=== PATIENT | male | born 1980 | race Caucasian/White ===

== ENCOUNTER 2024-02-24 11:55 | Inpatient (IN) | payer BC ==
--- NOTE | 2024-02-24 12:11 | ED ---
Recheck HPI - General Source: patient, RN notes reviewed Mode of arrival: ambulatory Limitations: no limitations <Phyllis Yao - Last Filed: 02/24/24 12:11> - General Source: patient, RN notes reviewed, old records reviewed Mode of arrival: ambulatory Limitations: no limitations <Jarred Moon - Last Filed: 02/24/24 14:26> - General Chief Complaint: Recheck/Abnormal Lab/Rx Stated Complaint: Low hemoglobin-sent by PCP Time Seen by Provider: 02/24/24 12:10 - History of Present Illness Initial Comments: Quick [id number]old male with no significant past medical history presents emergency department chief complaint of hemoglobin level 4.5. Patient received blood work complaining of primary care provider to establish care and was instructed to report to the emergency department for further evaluation. Patient states that he has been experiencing blood in the stool for the past few months addition to nausea, vomiting, and unintended weight loss. (Phyllis Yao) Patient is a pleasant 43-year-old male present to the emergency department with concerns for low blood level. Patient states he has had some intermittent blood in his stools over the past couple of months. Patient has had his some lightheadedness. Patient has been fatigued. Exertional dyspnea. No abdominal pain. Rare vomiting without blood. No melena. Patient does have a history of alcohol however has decreased significantly over this past month. (Jarred Moon) - Related Data Allergies Allergy/AdvReac Type Severity Reaction Status Date / Time No Known Allergies Allergy Verified 02/24/24 12:06 Review of Systems ROS Other: All systems not noted in ROS Statement are negative. <Phyllis Yao - Last Filed: 02/24/24 12:11> ROS Other: All systems not noted in ROS Statement are negative. Constitutional: Denies: fever Eyes: Denies: eye pain ENT: Denies: ear pain Respiratory: Denies: cough Cardiovascular: Reports: dyspnea on exertion. Denies: chest pain Endocrine: Reports: fatigue Gastrointestinal: Reports: as per HPI, hematochezia (Occasional). Denies: abdominal pain, melena Musculoskeletal: Denies: back pain <Jarred Moon - Last Filed: 02/24/24 14:26> ROS Statement: Those systems with pertinent positive or pertinent negative responses have been documented in the HPI. Past Medical History Past Medical History: No Reported History History of Any Multi-Drug Resistant Organisms: None Reported Past Surgical History: No Surgical Hx Reported Past Psychological History: No Psychological Hx Reported Smoking Status: Never smoker Past Alcohol Use History: Daily Past Drug Use History: Marijuana <Phyllis Yao - Last Filed: 02/24/24 12:11> General Exam Limitations: no limitations <Phyllis Yao - Last Filed: 02/24/24 12:11> Limitations: no limitations General appearance: alert, in no apparent distress Head exam: Present: normocephalic Eye exam: Present: normal appearance Neck exam: Present: normal inspection Cardiovascular Exam: Present: bradycardia GI/Abdominal exam: Present: soft. Absent: tenderness Rectal exam: Present: normal inspection. Absent: bloody stool Extremities exam: Present: normal inspection Neurological exam: Present: alert Psychiatric exam: Present: normal affect, normal mood Skin exam: Present: normal color <Jarred Moon - Last Filed: 02/24/24 14:26> - General Exam Comments Initial Comments: Visual Physical Exam Vital signs reviewed General: Well-appearing, nontoxic, no acute distress. Head: Normocephalic, atraumatic Eyes: PERRLA, EOMI ENT: Airway patent Chest: Nonlabored breathing Skin: No visual rash, normal skin tone Neuro: Alert and oriented 3 Musculoskeletal: No gross abnormalities (Phyllis Yao) Course Vital Signs 02/24/24 02/24/24 11:58 14:04 Temperature 98.1 F Pulse Rate 122 H 95 Respiratory 18 18 Rate Blood Pressure 111/54 123/53 O2 Sat by Pulse 100 100 Oximetry Medical Decision Making <Phyllis Yao - Last Filed: 02/24/24 12:11> - Lab Data Result diagrams: 02/24/24 13:41 <Jarred Moon - Last Filed: 02/24/24 14:26> - Medical Decision Making I completed the quick note portion of this chart signed Phyllis Yao PA-C (Phyllis Yao) EKG interpreted by myself shows sinus tachycardia 101. Normal axis. Normal QRS. Borderline ST depression inferior and lateral. Was pt. sent in by a medical professional or institution (, [facility], [facility], urgent care, hospital, or penitentiary...) When possible be specific @ -Patient was sent in by the office Did you speak to anyone other than the patient for history (EMS, parent, family, police, friend...)? What history was obtained from this source @ -Family is present and helps provide history including alcohol use Did you review nursing and triage notes (agree or disagree)? Why? @ -I reviewed and agree with nursing and triage notes Were old charts reviewed (outside hosp., previous admission, EMS record, old EKG, old radiological studies, urgent care reports/EKG's, penitentiary records)? Report findings @ -Labs reviewed from yesterday with anemia Differential Diagnosis (chest pain, altered mental status, abdominal pain women, abdominal pain men, vaginal bleeding, weakness, fever, dyspnea, syncope, headache, dizziness, GI bleed, back pain, seizure, CVA, palpatations, mental health, musculoskeletal)? @ -Differential Weakness: Hypoglycemia, shock, sepsis, hyponatremia, anemia, infection, IA, ETOH, adverse medicine reaction, overdose, stroke, this is not meant to be an all-inclusive list. EKG interpreted by me (3pts min.). @ -As above X-rays interpreted by me (1pt min.). @ -None done CT interpreted by me (1pt min.). @ -None done U/S interpreted by me (1pt. min.). @ -None done What testing was considered but not performed or refused? (CT, X-rays, U/S, labs)? Why? @ -None What meds were considered but not given or refused? Why? @ -None Did you discuss the management of the patient with other professionals (professionals i.e. , PA, [facility], lab, RT, psych nurse, social psychologist, vice president of nursing, teacher, coastal/harbor defense officer, family caseworker)? Give summary @ -Sound physician Dr. Villatoro who will admit covering Dr. Alanis he Was smoking cessation discussed for >3mins.? @ -No Was critical care preformed (if so, how long)? @ -33 minutes critical care Were there social determinants of health that impacted care today? How? (Homelessness, low income, unemployed, alcoholism, drug addiction, transportation, low edu. Level, literacy, decrease access to med. care, [facility], rehab)? @ -No Was there de-escalation of care discussed even if they declined (Discuss DNR or withdrawal of care, Hospice)? DNR status @ -No What co-morbidities impacted this encounter? (DM, HTN, Smoking, COPD, CAD, Cancer, CVA, ARF, Chemo, Hep., AIDS, mental health diagnosis, sleep apnea, morbid obesity)? @ -None Was patient admitted / discharged? Hospital course, mention meds given and route, prescriptions, significant lab abnormalities, going to OR and other pertinent info. @ -Patient presents with occasional blood in stools and anemia. Patient has fatigue tachycardia and exertional dyspnea. Transfusion ordered. Protonix ordered. Patient will be admitted with GI consult. Undiagnosed new problem with uncertain prognosis? @ -No Drug Therapy requiring intensive monitoring for toxicity (Heparin, Nitro, Insulin, Cardizem)? @ -Blood transfusion x 2 Were any procedures done? @ -No Diagnosis/symptom? @ -Lower GI hemorrhage Acute, or Chronic, or Acute on Chronic? @ -Acute Uncomplicated (without systemic symptoms) or Complicated (systemic symptoms)? @ -Complicated with anemia Side effects of treatment? @ -No Exacerbation, Progression, or Severe Exacerbation? @ -No Poses a threat to life or bodily function? How? (Chest pain, USA, IA, pneumonia, PE, COPD, DKA, ARF, appy, cholecystitis, CVA, Diverticulitis, Homicidal, Suicidal, threat to staff... and all critical care pts) @ -Threat of hypoperfusion to all organs. (Jarred Moon) - Lab Data Lab Results 02/24/24 Range/Units 13:41 WBC 2.1 L (3.8-10.6) k/uL RBC 2.09 L (4.30-5.90) m/uL Hgb 4.3 L* (13.0-17.5) gm/dL Hct 15.2 L* (39.0-53.0) % MCV 72.9 L (80.0-100.0) fL MCH 20.4 L (25.0-35.0) pg MCHC 27.9 L (31.0-37.0) g/dL RDW 17.9 H (11.5-15.5) % Plt Count 138 L (150-450) k/uL MPV 9.1 Hypochromasia Marked Poikilocytosis Moderate Anisocytosis Slight Microcytosis Moderate Critical Care Time Critical Care Time: Yes <Jarred Moon - Last Filed: 02/24/24 14:26> Disposition <Phyllis Yao - Last Filed: 02/24/24 12:11> Is patient prescribed a controlled substance at d/c from ED?: No Time of Disposition: 14:25 <Jarred Moon - Last Filed: 02/24/24 14:26> Clinical Impression: Lower GI hemorrhage Disposition: ADMITTED IP TO THIS HOSP Condition: Serious Referrals: Shilpa Morrison MD [Primary Care Provider] - 1-2 days
[2024-02-24 13:50] LABS: Anisocytosis Slight; Basophils % (A) 1 %; Eosinophils % (A) 1 %; Hypochromasia Marked; Lymphocytes # (A) 0.6 k/uL (1.0-4.8); Lymphocytes % (A) 30 %; MCH 20.4 pg (25.0-35.0); MCHC 27.9 g/dL (31.0-37.0); MCV 72.9 fL (80.0-100.0); Mean Platelet Volume 9.1; Microcytosis Moderate; Monocytes # (A) 0.2 k/uL (0-1.0); Monocytes % (A) 10 %; Neutrophils # (A) 1.2 k/uL (1.3-7.7); Neutrophils % (A) 55 %; Platelet Count 138 k/uL (150-450); Poikilocytosis Moderate; RBC 2.09 m/uL (4.30-5.90); RDW 17.9 % (11.5-15.5); WBC 2.1 k/uL (3.8-10.6)
[2024-02-24 13:55] LABS: HGB 4.3 gm/dL (13.0-17.5)
[2024-02-24 13:56] LABS: HCT 15.2 % (39.0-53.0)
[2024-02-24] MEDS ORDERED: NALOXONE 0.4 MG/ML 1 ML VIAL IV PRN (14:26)
[2024-02-24 14:28] LABS: ALT 26 U/L (4-49); AST 74 U/L (17-59); African American GFR (CKD) >90 (>60 ml/min/1.73 sqM); Albumin 3.8 g/dL (3.5-5.0); Alkaline Phosphatase 111 U/L (38-126); Anion Gap 7 mmol/L; Blood Urea Nitrogen 7 mg/dL (9-20); Calcium 8.9 mg/dL (8.4-10.2); Carbon Dioxide 23 mmol/L (22-30); Chloride 107 mmol/L (98-107); Glucose 104 mg/dL (74-99); Magnesium 1.9 mg/dL (1.6-2.3); Non-African American GFR(CKD) >90 (>60 ml/min/1.73 sqM); Potassium 4.3 mmol/L (3.5-5.1); Sodium 137 mmol/L (137-145); Target Cells Present; Total Bilirubin 2.7 mg/dL (0.2-1.3); Total Protein 6.4 g/dL (6.3-8.2)
[2024-02-24] MEDS: SODIUM CHLORIDE 0.9% 1,000 ML IV SCH (14:44)
[2024-02-24] MEDS: PANTOPRAZOLE 40 MG/10 ML VIAL IVP STA (14:44)
[2024-02-24] MEDS: PANTOPRAZOLE 40 MG/10 ML VIAL IV SCH ×2 (15:04→22:31)
--- NOTE | 2024-02-24 15:20 | P.HPIM ---
History of Present Illness H&P Date: 02/24/24 History of Presenting Illness: Patient is a pleasant 43-year-old male with a past medical history of heavy alcohol abuse drinking a reported half a gallon of vodka or more daily. He presented to the emergency department today as directed by his PCP for concerns of critically low hemoglobin of 4.4. Patient reports he went to his PCPs office yesterday secondary to reports of generalized weakness/fatigue, exertional dyspnea, lower extremity edema, and reports of bloody stools. Patient reports he has had progressively worsening swelling in his lower extremities over the past 6 months, noticed jaundice discoloration over the last 3 months, and reported bloody stools both black and tarry as well as bright red at times occurring approximately 1-2 episodes a week over the past 3 months. Patient reports all of the symptoms have progressively worsened and just ambulating short distances, he now needs to sit down and take a break. Patient reports he quoc alcohol abuse for greater than 20 years and has not been to a doctor throughout that time until yesterday. Does report occasional marijuana use but denies nicotine use and denies any other drug use. Patient reports last alcoholic drink was 02/23/2024. Upon arrival to our facility, patient underwent evaluation in the emergency department. Vital signs upon arrival show blood pressure 111/54, heart rate 122, respiratory rate 18, temp 98.1 F, and SpO2 of 100% on room air. EKG was completed showing sinus tachycardia at 101 bpm with T wave inversion in lateral leads I, II, aVL and V4 through V6. Labs completed and reviewed. CBC showing pancytopenia with WBC count of 2.1, hemoglobin of 4.3, and platelet count of 138. Coagulation profile showing elevated PT of 14.1 and INR 1.4. BMP un remarkable. Blood glucose 104. Magnesium 1.9. Liver profile showing hyperbilirubinemia with total bili of 2.7 and AST of 74. Fecal occult was positive. Order placed for transfusion of 2 units PRBCs and patient admitted under our services with consultation to it architect. Review of systems: Pertinent positives and negatives as discussed in HPI, a complete review of systems was performed and all other systems are negative. Physical exam: Vital signs reviewed and stable. General: Nontoxic, no distress and appears stated age. Derm: Skin warm and dry, normal coloration for ethnicity. Head: Atraumatic, normocephalic and symmetric. Eyes: EOMs intact, no lid lag, and anicteric sclera Mouth: no lip lesions, mucus membranes moist Cardiovascular: regular rate and rhythm with normal S1S2, no murmur, positive posterior tibial pulses bilaterally, and cap refill < 2 seconds. Lungs: Respirations even, regular, and unlabored on room air. Lungs CTA bilaterally, no rhonchi, no rales, no wheezing, and no accessory muscle usage. Abdominal: soft, tenderness upon palpation right upper quadrant, no guarding, positive for hepatomegaly on physical exam Ext: ROM intact. No gross muscle atrophy, 3+ pitting bilateral lower extremity edema, no contractures Neuro: Speech clear, face symmetrical and CN II-XII grossly intact with no noted focal neuro deficits Psych: Alert and oriented to person, place, time, and situation. Appropriate and pleasant affect. Assessment and Plan of Care: Acute blood loss anemia secondary to GI bleed with hemoglobin of 4.3 -Consult Gastroenterology. -CT abdomen and pelvis without contrast -Transfused 2 units PRBCs. Continue to monitor H&H every 6 hours and transfuse as needed for hemoglobin less than 7. -Protonix 40 mg IVP twice daily. -Nothing by mouth until cleared by GI. -Continued gentle hydration with 0.9% normal saline at 130 cc/h. -SCDs for DVT prophylaxis. -Telemetry monitoring -Follow-up on iron profile Severe alcohol abuse, pending withdraw Suspect alcoholic cirrhosis Pancytopenia, suspect secondary to daily alcohol abuse Hyperbilirubinemia with elevated liver enzymes, secondary to daily alcohol abuse Elevated INR -Order placed for monitoring of CIWA scores and patient to be medicated with Ativan 0.5 mg every 4 hours as needed for CIWA score of 4-5, Ativan 1 mg every 4 hours for CIWA score of 6-7, Ativan 2 mg every 3 hours CIWA score of 8-9, and Ativan 2 mg every 2 hours forr CIWA score of 10 or greater. -Continuous IV hydration. -Thiamine 100 mg daily, and Multivitamin daily, and Folate 1 mg daily -Seizure and fall precautions in place. -Continued close monitoring of electrolytes and replace as needed. -Telemetry monitoring. Data and imaging reviewed: As stated above in HPI The patient is admitted with an anticipated greater than 2 midnight stay for ev aluation of acute blood loss anemia CODE STATUS: Full code DVT prophylaxis: SCDs Anticipated discharge date: Pending clinical course Anticipated discharge place: Home Patient was seen independently by Nurse Practitioner. This document was prepared using [employer] dictation software. Please allow for e rrors in prospecting observer while rare they do occur. .Benson Ty NP rendered care for this patient independently, reviewed the findings and plan as documented in the note above. I did not physically speak with or examine the patient on this date. Past Medical History Past Medical History: No Reported History History of Any Multi-Drug Resistant Organisms: None Reported Past Surgical History: No Surgical Hx Reported Past Psychological History: No Psychological Hx Reported Smoking Status: Never smoker Past Alcohol Use History: Daily Past Drug Use History: Marijuana Medications and Allergies Home Medications Medication Instructions Recorded Confirmed Type Furosemide [Lasix] 40 mg PO DAILY 02/24/24 02/24/24 History Allergies Allergy/AdvReac Type Severity Reaction Status Date / Time No Known Allergies Allergy Verified 02/24/24 16:35 Physical Exam Vitals: Vital Signs Temp Pulse Resp BP Pulse Ox 02/24/24 14:04 95 18 123/53 100 02/24/24 11:58 98.1 F 122 H 18 111/54 100 Intake and Output 02/24/24 02/24/24 02/24/24 06:59 14:59 22:59 Other: Weight 134.717 kg Results CBC & Chem 7: 02/25/24 07:52 02/25/24 07:52 Labs: Abnormal Lab Results - Last 24 Hours (Table) 02/24/24 02/24/24 02/24/24 Range/Units 13:41 13:41 14:05 WBC 2.1 L (3.8-10.6) k/uL RBC 2.09 L (4.30-5.90) m/uL Hgb 4.3 L* (13.0-17.5) gm/dL Hct 15.2 L* (39.0-53.0) % MCV 72.9 L (80.0-100.0) fL MCH 20.4 L (25.0-35.0) pg MCHC 27.9 L (31.0-37.0) g/dL RDW 17.9 H (11.5-15.5) % Plt Count 138 L (150-450) k/uL Neutrophils # 1.2 L (1.3-7.7) k/uL Lymphocytes # 0.6 L (1.0-4.8) k/uL BUN 7 L (9-20) mg/dL Glucose 104 H (74-99) mg/dL Total Bilirubin 2.7 H (0.2-1.3) mg/dL AST 74 H (17-59) U/L Crossmatch See Detail
[2024-02-24] MEDS ORDERED: LORazepam 0.5 MG TAB PO PRN (15:22)
[2024-02-24] MEDS ORDERED: LORazepam 1 MG TAB PO PRN (15:22)
[2024-02-24] MEDS ORDERED: LORazepam 2 MG/ML INJ IV PRN ×3 (15:22)
--- NOTE | 2024-02-24 16:16 | P.CNPUL ---
History of Present Illness Consult date: 02/24/24 Requesting physician: Shilpa Morrison Reason for consult: other Chief complaint: Chronic liver disease. History of present illness: Pulmonary consult dated February 24, 2024. This is a 43-year-old male seen in the emergency department, room 19. The patient has a history of heavy alcohol abuse. The patient states that he drinks at least a half a gallon of vodka every day. He presented to the emergency department with weakness, and was found to have a hemoglobin of 4.3. His stools have had bright red blood, as well as dark tarry stools, over the course of many weeks. The patient feels fatigued and tired. In addition, he complains of lower extremity edema. The patient recently started seeing a family doctor in [place]. The patient has not been to the doctor in many years. The patient states that he does not smoke. He has no past medical history, takes no medications at home. He is on room air, and is getting saline at 125 cc an hour. Packed red blood cells have been ordered. He apparently saw the nurse practitioner in his new doctor's office, who directed him to the ER, when the blood work showed a very low hemoglobin. Current labs include a white count of 2.1, hemoglobin 4.3, hematocrit 15.2, and a platelet count of 138,000. 137, potassium 4.3, chlorides 107, CO2 23, anion gap 7, and creatinine 0.67. Glucose 104. Bilirubin 2.7. AST 74. ALT 26. Stools were positive for occult blood. Review of Systems REVIEW OF SYSTEMS: CONSTITUTIONAL: Weakness and fatigue. NEUROLOGIC: [ Negative.] HEENT: [ Negative.] CARDIAC: Lower extremity edema. PULMONARY: [Negative.] GI: Dark tarry stools, bright red bleeding in stools. : Negative RHEUMATOLOGIC: [ Negative.] IMMUNOLOGIC: [ Negative.] ENDOCRINE: [Negative. ] DERMATOLOGIC: [Negative.] Past Medical History Past Medical History: No Reported History History of Any Multi-Drug Resistant Organisms: None Reported Past Surgical History: No Surgical Hx Reported Past Psychological History: No Psychological Hx Reported Smoking Status: Never smoker Past Alcohol Use History: Daily Past Drug Use History: Marijuana Medications and Allergies Allergies Allergy/AdvReac Type Severity Reaction Status Date / Time No Known Allergies Allergy Verified 02/24/24 12:06 Physical Exam Osteopathic Statement: *. No significant issues noted on an osteopathic structural exam other than those noted in the History and Physical/Consult. Vitals: Vital Signs Temp Pulse Resp BP Pulse Ox 02/24/24 14:04 95 18 123/53 100 02/24/24 11:58 98.1 F 122 H 18 111/54 100 Intake and Output 02/24/24 02/24/24 02/24/24 06:59 14:59 22:59 Other: Weight 134.717 kg No acute distress, oriented 3. No respiratory distress. Currently on room air. HEENT examination is grossly unremarkable. Mucous membranes are moist. No oral lesions. Scleral icterus is noted. Neck supple. Full range of motion. No adenopathy thyromegaly or neck vein distention. Cardiovascular examination reveals regular rhythm rate. S1-S2 normal. No S3 or S4. No discernible murmur noted. Heart rate 95 bpm. Lungs reveal clear breath sounds. Breath sounds are equal bilaterally. No adventitious lung sounds including wheezes rhonchi or crackles. Abdomen soft bowel sounds are heard. No masses or tenderness. Extremities are intact. No cyanosis or clubbing. 3+ edema is noted. Skin is without rash or lesion. Neurologic examination is brief but nonfocal. Results - Laboratory Findings CBC and BMP: 02/24/24 13:41 02/24/24 13:41 Abnormal lab findings: Abnormal Labs 02/24/24 02/24/24 02/24/24 13:41 13:41 14:05 WBC 2.1 L RBC 2.09 L Hgb 4.3 L* Hct 15.2 L* MCV 72.9 L MCH 20.4 L MCHC 27.9 L RDW 17.9 H Plt Count 138 L Neutrophils # 1.2 L Lymphocytes # 0.6 L BUN 7 L Glucose 104 H Total Bilirubin 2.7 H AST 74 H Crossmatch See Detail Assessment and Plan Assessment: Chronic gastrointestinal bleeding, with a hemoglobin of 4.3. Suspect chronic liver disease from alcohol abuse. Rule out alcohol withdrawal syndrome. Chronic lower extremity edema, possibly related to chronic liver disease. Hyperbilirubinemia. 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 Plan: Plan dated February 24, 2024. The patient is seen in the emergency department, room 19. The patient apparently drinks 1/2 gallon of vodka every night. The patient presented with GI bleeding. He said black tarry stools, bright red blood in his stools. His hemoglobin on admission was 4.3. In addition, he complains of extreme fatigue, some mild shortness of breath on exertion, and significant lower extremity edema. Labs, x-rays, medications are reviewed. Prognosis is guarded. We will continue to follow and make recommendations along the way. Packed red blood cells have been ordered for this patient. Time with Patient: Greater than 30
[2024-02-24 16:33] LABS: INR 1.4 (<1.2); Prothrombin Time 14.1 sec (10.0-12.5)
--- NOTE | 2024-02-24 19:51 | CT ---
EXAMINATION TYPE: CT abdomen pelvis w con CT DLP: 1965 mGycm, Automated exposure control for dose reduction was used. DATE OF EXAM: 02/24/2024 7:37 PM COMPARISON: None. CLINICAL INDICATION:Male, 43 years old with history of RUQ tenderness on exam; Abdominal pain. 100cc iso 370 injected. No oral contrast. No prior. ABC TECHNIQUE: Axial CT abdomen pelvis w con;Sagittal and coronal reformats were created on a separate w orkstation. Contrast used:100 ml mL of Isovue 370 with IV Contrast, (none if empty) Oral contrast used: without Oral Contrast (none if empty) FINDINGS: LOWER CHEST: Small right trace left pleural effusion. Mild cardiomegaly. ABDOMEN LIVER: Subtle nodular contour to liver with caudate lobe hypertrophy changes and prominent portal vei n. GALLBLADDER AND BILE DUCTS: Tiny gallstone present. PANCREAS: Unremarkable. SPLEEN: Is enlarged measuring up to 18.1 cm. ADRENAL GLANDS: Unremarkable. KIDNEYS AND URETERS: No evidence of hydronephrosis or renal calculus. The ureters are unremarkable. PELVIS BLADDER: Unremarkable REPRODUCTIVE: Unremarkable. ABDOMEN & PELVIS STOMACH AND BOWEL: No evidence of bowel obstruction. The appendix is normal. PERITONEUM/RETROPERITONEUM: No evidence of pneumoperitoneum. Small amount of abdominal ascites. VASCULATURE: No evidence of aortic aneurysm. MUSCULOSKELETAL: No acute osseous abnormalities LYMPH NODES: Multiple prominent lymph nodes are seen throughout the mesentery with adjacent fat stran ding measuring up to 9 mm in short axis series 201 image 37. Retroperitoneal lymph nodes also present measuring up to 13 mm series 201 image 45. SOFT TISSUE/ABDOMINAL WALL: Fat-containing umbilical hernia. IMPRESSION: 1. Fat stranding changes in upper abdomen unclear exactly etiology there is multiple lymph nodes whi ch are prominent and mildly enlarged in the mesentery with adjacent fat stranding. Additionally there is a few retroperitoneal upper abdominal lymph nodes present. Mesenteric adenitis and sclerosing cardona niculitis. Lymphoma not entirely excluded. Follow-up 2. Nodularity to the liver with splenomegaly correlate for cirrhosis with portal hypertension given history of jaundice. No evidence for ductal dilation. 3. Cholelithiasis. Trace fluid around the gallbladder fossa.
[2024-02-24 20:12] LABS: Iron 14 UG/DL (65-175); Total Iron Binding Capacity 437 UG/DL (228-460)
[2024-02-25 01:30] LABS: Anisocytosis Slight; Hypochromasia Marked; MCH 21.5 pg (25.0-35.0); MCHC 28.3 g/dL (31.0-37.0); Mean Platelet Volume 8.3; Microcytosis Slight; Platelet Count 123 k/uL (150-450); Poikilocytosis Marked; RBC 2.32 m/uL (4.30-5.90); RDW 18.5 % (11.5-15.5); WBC 2.4 k/uL (3.8-10.6)
[2024-02-25 02:08] LABS: HCT 17.6 % (39.0-53.0)
--- NOTE | 2024-02-25 08:10 | P.PN ---
Subjective Progress Note Date: 02/25/24 Hospital Course: Patient is a pleasant 43-year-old male with a past medical history of heavy alcohol abuse drinking a reported half a gallon of vodka or more daily. He presented to the emergency department today as directed by his PCP for concerns of critically low hemoglobin of 4.4. Patient reports he went to his PCPs office yesterday secondary to reports of generalized weakness/fatigue, exertional dyspnea, lower extremity edema, and reports of bloody stools. Patient reports he has had progressively worsening swelling in his lower extremities over the p ast 6 months, noticed jaundice discoloration over the last 3 months, and reported bloody stools both black and tarry as well as bright red at times occurring approximately 1-2 episodes a week over the past 3 months. Patient reports all of the symptoms have progressively worsened and just ambulating short distances, he now needs to sit down and take a break. Patient reports heavy alcohol abuse for greater than 20 years and has not been to a doctor throughout that time until yesterday. Does report occasional marijuana use but denies nicotine use and denies any other drug use. Patient reports last alcoholic drink was 02/23/2024. Upon arrival to our facility, patient underwent evaluation in the emergency department. Vital signs upon arrival show blood pressure 111/54, heart rate 122, respiratory rate 18, temp 98.1 F, and SpO2 of 100% on room air. EKG was completed showing sinus tachycardia at 101 bpm with T wave inversion in lateral leads I, II, aVL and V4 through V6. Labs completed and reviewed. CBC showing pancytopenia with WBC count of 2.1, hemoglobin of 4.3, and platelet count of 138. Coagulation profile showing elevated PT of 14.1 and INR 1.4. BMP unremarkable. Blood glucose 104. Magnesium 1.9. Liver profile showing hyperbilirubinemia with total bili of 2.7 and AST of 74. Fecal occult was positive. Order placed for transfusion of 2 units PRBCs and patient admitted under our services with consultation to guide delegate. Physical exam: Patient seen and fully evaluated at bedside this morning. He was resting com fortably currently denies having any pain or complaints at this time. Currently denies having any symptoms of alcohol withdrawal. Hemoglobin currently 6.0 status post transfusion of 4 units PRBCs. Patient denies active bleeding at this time denies any further episodes of melena or hematochezia since arrival to our facility. Vital signs reviewed and stable. General: Nontoxic, no distress and appears stated age. Derm: Skin warm and dry, Jaundiced Head: Atraumatic, normocephalic and symmetric. Eyes: EOMs intact, no lid lag, and scleral icteris Mouth: no lip lesions, mucus membranes moist Cardiovascular: regular rate and rhythm with normal S1S2, no murmur, positive posterior tibial pulses bilaterally, and cap refill < 2 seconds. Lungs: Respirations even, regular, and unlabored on room air. Lungs CTA bilaterally, no rhonchi, no rales, no wheezing, and no accessory muscle usage. Abdominal: soft, slight tenderness upon palpation right upper quadrant, no guarding, positive for hepatomegaly on physical exam Ext: ROM intact. No gross muscle atrophy, 3+ pitting bilateral lower extremity edema, no contractures Neuro: Speech clear, face symmetrical and CN II-XII grossly intact with no noted focal neuro deficits Psych: Alert and oriented to person, place, time, and situation. Appropriate and pleasant affect. 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 -CT abdomen and pelvis with contrast was completed showing multiple lymph nodes which are prominent and mildly enlarged in the mesentery with adjacent fat stranding, retroperitoneal upper abdominal lymph nodes, mesenteric adenitis and sclerosing panniculitis with nodularity to the liver with splenomegaly consistent with cirrhosis and portal hypertension. -Transfused 4 units PRBCs. Continue to monitor H&H every 6 hours and transfuse as needed for hemoglobin less than 7. Status posttransfusion of 4 units PRBCs hemoglobin 6.0. Order placed for an additional 2 units PRBCs. -Protonix 40 mg IVP twice daily. -Clear Liquid diet. -Order placed for Lasix 40 mg IVP to be administered between blood transfusions. -Continue SCDs for DVT prophylaxis. -Telemetry monitoring -Iron profile obtained on admission revealed iron of 14, TIBC of 437, iron percentage saturation of 3.20 and transferrin of 312.0. -Hematology/oncology consulted secondary to multiple prominently enlarged lymph nodes throughout the abdomen. Severe alcohol abuse, pending withdraw Liver Cirrhosis with portal vein hypertension, suspect alcoholic cirrhosis Pancytopenia, suspect secondary to daily alcohol abuse Hyperbilirubinemia with elevated liver enzymes, secondary to daily alcohol abuse Elevated INR -Continue monitoring of CIWA scores and patient to be medicated with Ativan 0.5 mg every 4 hours as needed for CIWA score of 4-5, Ativan 1 mg every 4 hours for CIWA score of 6-7, Ativan 2 mg every 3 hours CIWA score of 8-9, and Ativan 2 mg every 2 hours forr CIWA score of 10 or greater. -Continuous IV hydration. -Thiamine 100 mg daily, and Multivitamin daily, and Folate 1 mg daily -Seizure and fall precautions in place. -Continued close monitoring of electrolytes and replace as needed. -Telemetry monitoring. Data and imaging reviewed: Status posttransfusion of 4 units PRBCs hemoglobin 6.0. Order placed for an additional 2 units PRBCs (totaling 6 units administered). Labs completed and reviewed. CBC with continued pancytopenia with WBC count of 1.9, hemoglobin 6.0, platelet count of 129. BMP showing non-anion gap metabolic acidosis with chloride of 111, bicarb of 20, and anion gap of 7. To yamil bili 4.7. CT abdomen and pelvis with contrast was completed showing multiple lymph nodes which are prominent and mildly enlarged in the mesentery with adjacent fat stranding, retroperitoneal upper abdominal lymph nodes, mesenteric adenitis and sclerosing panniculitis with nodularity to the liver with splenomegaly consistent with cirrhosis and portal hypertension. Vital Signs reviewed. Blood pressure 137/64, heart rate 84, respiratory rate 18, temp 98.0 F, and SpO2 of 96% on room air. CODE STATUS: Full code DVT prophylaxis: SCDs Anticipated discharge date: Pending clinical course Anticipated discharge place: Home Patient was seen independently by Nurse Practitioner. This document was prepared using [email or web address] dictation software. Please allow for errors in filter cleaner while rare they do occur. . Benson Ty NP rendered care for this patient independently, reviewed the findings and plan as documented in the note above. I did not physically speak with or examine the patient on this date. Objective - Vital Signs Vital signs: Vital Signs Temp 97.9 F 02/25/24 07:10 Pulse 86 02/25/24 07:10 Resp 18 02/25/24 07:10 BP 133/72 02/25/24 07:10 Pulse Ox 98 02/25/24 07:10 FiO2 Intake & Output 02/24/24 02/25/24 02/25/24 18:59 06:59 18:59 Intake Total 289 574 310 Balance 289 574 310 Weight 134.717 kg 133.8 kg Intake: Blood Product 289 574 310 Rc As-1 Unit 0 310 [id number] Rc Pheresis 2 As3 Unit 288 [id number] Rc Pheresis 2 As3 Unit 289 [id number] Rc Pheresis As-3 Unit 286 [id number] Other: Voiding Method Toilet # Voids 2 - Labs CBC & Chem 7: 02/25/24 07:52 02/25/24 07:52 Labs: Abnormal Lab Results - Last 24 Hours (Table) 02/24/24 02/24/24 02/24/24 Range/Units 13:41 13:41 14:05 WBC 2.1 L (3.8-10.6) k/uL RBC 2.09 L (4.30-5.90) m/uL Hgb 4.3 L* (13.0-17.5) gm/dL Hct 15.2 L* (39.0-53.0) % MCV 72.9 L (80.0-100.0) fL MCH 20.4 L (25.0-35.0) pg MCHC 27.9 L (31.0-37.0) g/dL RDW 17.9 H (11.5-15.5) % Plt Count 138 L (150-450) k/uL Neutrophils # 1.2 L (1.3-7.7) k/uL Lymphocytes # 0.6 L (1.0-4.8) k/uL PT (10.0-12.5) sec INR (<1.2) BUN 7 L (9-20) mg/dL Glucose 104 H (74-99) mg/dL Iron 14 L (65-175) UG/DL % Saturation 3.20 L (15.00-50.00) Total Bilirubin 2.7 H (0.2-1.3) mg/dL AST 74 H (17-59) U/L Crossmatch See Detail 02/24/24 02/25/24 Range/Units 16:06 00:21 WBC 2.4 L (3.8-10.6) k/uL RBC 2.32 L (4.30-5.90) m/uL Hgb 5.0 L* (13.0-17.5) gm/dL Hct 17.6 L* (39.0-53.0) % MCV 76.0 L (80.0-100.0) fL MCH 21.5 L (25.0-35.0) pg MCHC 28.3 L (31.0-37.0) g/dL RDW 18.5 H (11.5-15.5) % Plt Count 123 L (150-450) k/uL Neutrophils # (1.3-7.7) k/uL Lymphocytes # (1.0-4.8) k/uL PT 14.1 H (10.0-12.5) sec INR 1.4 H (<1.2) BUN (9-20) mg/dL Glucose (74-99) mg/dL Iron (65-175) UG/DL % Saturation (15.00-50.00) Total Bilirubin (0.2-1.3) mg/dL AST (17-59) U/L Crossmatch
[2024-02-25] MEDS: FOLIC ACID 1 MG TAB PO SCH (08:42)
[2024-02-25] MEDS: THIAMINE 100 MG TAB PO SCH (08:42)
[2024-02-25] MEDS: MULTIVITAMINS, THERA 1 EACH TAB PO SCH (08:42)
[2024-02-25] MEDS: FUROSEMIDE 40 MG TAB PO SCH (08:42)
[2024-02-25 08:44] LABS: Anisocytosis Slight; Basophils % (A) 1 %; Eosinophils % (A) 0 %; HCT 20.8 % (39.0-53.0); Hypochromasia Marked; Lymphocytes # (A) 0.6 k/uL (1.0-4.8); Lymphocytes % (A) 30 %; MCH 22.4 pg (25.0-35.0); MCHC 28.6 g/dL (31.0-37.0); MCV 78.4 fL (80.0-100.0); Mean Platelet Volume 7.7; Microcytosis Slight; Monocytes # (A) 0.2 k/uL (0-1.0); Monocytes % (A) 9 %; Neutrophils # (A) 1.1 k/uL (1.3-7.7); Neutrophils % (A) 57 %; Platelet Count 129 k/uL (150-450); Poikilocytosis Marked; RBC 2.66 m/uL (4.30-5.90); RDW 19.1 % (11.5-15.5); WBC 1.9 k/uL (3.8-10.6)
[2024-02-25 09:10] LABS: ALT 22 U/L (4-49); AST 54 U/L (17-59); African American GFR (CKD) >90 (>60 ml/min/1.73 sqM); Albumin 3.4 g/dL (3.5-5.0); Alkaline Phosphatase 105 U/L (38-126); Anion Gap 7 mmol/L; Blood Urea Nitrogen 7 mg/dL (9-20); Calcium 8.7 mg/dL (8.4-10.2); Carbon Dioxide 20 mmol/L (22-30); Chloride 111 mmol/L (98-107); Glucose 93 mg/dL (74-99); Magnesium 1.8 mg/dL (1.6-2.3); Non-African American GFR(CKD) >90 (>60 ml/min/1.73 sqM); Potassium 3.9 mmol/L (3.5-5.1); Sodium 138 mmol/L (137-145); Total Bilirubin 4.7 mg/dL (0.2-1.3)
--- NOTE | 2024-02-25 13:03 | P.CONS ---
History of Present Illness - Reason for Consult Consult date: 02/25/24 GI hemorrhage Requesting physician: Jarred Moon - Chief Complaint Abnormal blood work - History of Present Illness This is a pleasant 43-year-old male who was sent into the emergency department for further evaluation from his primary care physician after getting some blood work done and having low hemoglobin. Patient presented to the emergency department with reporting blood in his stools 2-3 times a week for the last 3 months duration, weakness, and weight loss. He was noted to have a hemoglobin of 4.3 he was transfused with a repeat hemoglobin of 5.0. He had a total of 4 units of blood transfusion. Awaiting morning labs. Patient states that he has not seen a physician for several months since he had moved here from [place]. States his has health additions and they have been taking care of her. Again he states that he will have blood in his stool 2-3 times a week can be bright red at times this has been occurring for last 3 months duration. He also states that he has occasional vomiting, no hematemesis. Denies any abdominal pain but states that he has experienced some weight loss. He was also noted to have elevated LFTs with and admits to history of alcohol abuse and has cut back to 3 drinks a day. States that he was drinking 30 drinks a day for the last 15 years. He had a CT of the abdomen and pelvis with findings of multiple lymph nodes and cirrhosis of the liver with portal hypertension. He currently denies any abdominal pain, no nausea or vomiting. States that he did have some bright red blood per rectum with a bowel movement this morning. Denies any previous history of upper or lower endoscopy. Denies any anticoagulation and no regular NSAID use. Review of Systems REVIEW OF SYSTEMS: CARDIOPULMONARY: No chest pain or shortness of breath. Gastrointestinal: No abdominal pain. No nause or vomiting. No hematemesis, coffee-ground emesis. Rectal bleeding, bright red blood. GENITOURINARY: No dysuria or hematuria. MUSCULOSKELETAL: Reports normal range of motion., SKIN: No rashes. No jaundice. ENDOCRINE: No chills, fevers. No excessive weight gain or loss. No polydipsia or polyuria. PSYCHIATRIC: Alcohol abuse. NEUROLOGY: No change in mental status. Denies dizziness, headache. ENT: Vision unremarkable. CONSTITUTIONAL: Unexplained weight loss. No fever, chills, night sweats. Past Medical History Past Medical History: No Reported History History of Any Multi-Drug Resistant Organisms: None Reported Past Surgical History: No Surgical Hx Reported Past Anesthesia/Blood Transfusion Reactions: No Reported Reaction Past Psychological History: No Psychological Hx Reported Smoking Status: Never smoker Past Alcohol Use History: Daily Past Drug Use History: Marijuana Medications and Allergies Home Medications Medication Instructions Recorded Confirmed Type Furosemide [Lasix] 40 mg PO DAILY 02/24/24 02/24/24 History Allergies Allergy/AdvReac Type Severity Reaction Status Date / Time No Known Allergies Allergy Verified 02/24/24 16:35 Physical Exam Vitals: Vital Signs Temp Pulse Pulse Resp BP BP Pulse Ox 02/25/24 07:10 97.9 F 86 18 133/72 98 02/25/24 05:59 98.2 F 82 16 153/82 97 02/25/24 05:55 98.2 F 80 18 153/82 96 02/25/24 05:39 98.2 F 82 16 131/57 98 02/25/24 05:19 98.1 F 79 16 138/64 98 02/25/24 04:03 98.1 F 80 16 133/78 96 02/25/24 03:43 98.0 F 92 16 149/74 97 02/25/24 03:36 98.0 F 85 16 132/64 98 02/24/24 23:05 98.2 F 93 16 128/65 97 02/24/24 22:46 98.4 F 02/24/24 22:25 84 18 141/69 97 02/24/24 22:00 85 16 121/56 96 02/24/24 21:30 91 18 118/56 96 02/24/24 21:00 85 16 117/73 96 02/24/24 20:30 94 16 133/69 98 02/24/24 20:15 94 18 134/71 100 02/24/24 20:09 90 16 128/73 98 02/24/24 19:48 98.1 F 106 H 18 150/69 100 02/24/24 19:40 93 18 122/69 98 02/24/24 18:20 98.9 F 96 18 121/67 98 02/24/24 18:00 98 16 124/61 96 02/24/24 17:30 95 18 128/65 100 02/24/24 17:00 86 16 124/65 100 02/24/24 16:45 93 18 120/62 100 02/24/24 16:30 96 16 130/64 99 02/24/24 16:19 98.3 F 93 16 125/68 97 02/24/24 16:14 88 18 129/64 99 02/24/24 16:09 98.6 F 94 18 131/64 99 02/24/24 14:04 95 18 123/53 100 02/24/24 11:58 98.1 F 122 H 18 111/54 100 Intake and Output 02/24/24 02/25/24 02/25/24 22:59 06:59 14:59 Intake Total 575 288 310 Balance 575 288 310 Intake: Blood Product 575 288 310 Rc As-1 Unit 0 310 [id number] Rc Pheresis 2 As3 Unit 288 [id number] Rc Pheresis 2 As3 Unit 289 [id number] Rc Pheresis As-3 Unit 286 [id number] Other: Voiding Method Toilet # Voids 2 Weight 133.8 kg General appearance: The patient is alert, oriented, appears in no acute distress. HET: Head is normocephalic and atraumatic. Conjunctiva pink. Sclera anicteric. Neck: Supple without lymphadenopathy. Trachea midline. Heart: Regular. Lungs: Equal expansion, normal respiratory effort. Abdomen: Soft, nontender, hepatomegaly, nondistended. Skin: No rashes. No jaundice. Extremities: Normal skin color and turgor. No pedal edema. Neurological: No focal deficits. Alert and oriented x3. Results CBC & Chem 7: 02/25/24 07:52 02/25/24 07:52 Labs: Abnormal Lab Results - Last 24 Hours (Table) 02/24/24 02/24/24 02/24/24 Range/Units 13:41 13:41 14:05 WBC 2.1 L (3.8-10.6) k/uL RBC 2.09 L (4.30-5.90) m/uL Hgb 4.3 L* (13.0-17.5) gm/dL Hct 15.2 L* (39.0-53.0) % MCV 72.9 L (80.0-100.0) fL MCH 20.4 L (25.0-35.0) pg MCHC 27.9 L (31.0-37.0) g/dL RDW 17.9 H (11.5-15.5) % Plt Count 138 L (150-450) k/uL Neutrophils # 1.2 L (1.3-7.7) k/uL Lymphocytes # 0.6 L (1.0-4.8) k/uL PT (10.0-12.5) sec INR (<1.2) BUN 7 L (9-20) mg/dL Glucose 104 H (74-99) mg/dL Iron 14 L (65-175) UG/DL % Saturation 3.20 L (15.00-50.00) Total Bilirubin 2.7 H (0.2-1.3) mg/dL AST 74 H (17-59) U/L Crossmatch See Detail 02/24/24 02/25/24 Range/Units 16:06 00:21 WBC 2.4 L (3.8-10.6) k/uL RBC 2.32 L (4.30-5.90) m/uL Hgb 5.0 L* (13.0-17.5) gm/dL Hct 17.6 L* (39.0-53.0) % MCV 76.0 L (80.0-100.0) fL MCH 21.5 L (25.0-35.0) pg MCHC 28.3 L (31.0-37.0) g/dL RDW 18.5 H (11.5-15.5) % Plt Count 123 L (150-450) k/uL Neutrophils # (1.3-7.7) k/uL Lymphocytes # (1.0-4.8) k/uL PT 14.1 H (10.0-12.5) sec INR 1.4 H (<1.2) BUN (9-20) mg/dL Glucose (74-99) mg/dL Iron (65-175) UG/DL % Saturation (15.00-50.00) Total Bilirubin (0.2-1.3) mg/dL AST (17-59) U/L Crossmatch Comments: CT abdomen and pelvis with contrast reports fat stranding changes in upper abdom en unclear exactly etiology there is multiple lymph nodes which are prominent and mildly enlarged in the mesentery with adjacent fat stranding. Additionally there is a few retroperitoneal upper abdominal lymph nodes present. Mesenteric adenitis and sclerosing panniculitis. Lymphoma not entirely excluded. Follow- up. Nodularity to the liver with splenomegaly correlate for cirrhosis with portal hypertension given history of jaundice. No evidence for ductal dilation. Cholelithiasis. Trace fluid around the gallbladder fossa. Assessment and Plan (1) Anemia Narrative/Plan: 43-year-old male presenting with low hemoglobin with lower GI bleed over the last 3 months duration. This in a patient who is noted to have pancytopenia and history of heavy alcohol abuse over the last 15 years duration. Anemia likely multifactorial including acute blood loss anemia as well as underlying cirrhosis of the liver with portal hypertension and of course need to consider possible other etiologies such as lymphoma with multiple enlarged lymph nodes and recent blood loss. Nonetheless patient has not had previous endoscopic evaluation and is recommended that he have upper and lower endoscopy. Transfuse as needed and will consult hematology/oncology Current Visit: Yes Status: Acute Code(s): D64.9 - ANEMIA, UNSPECIFIED SNOMED Code(s): 822949358 (2) Rectal bleeding Current Visit: Yes Status: Acute Code(s): K62.5 - HEMORRHAGE OF ANUS AND RECTUM SNOMED Code(s): 67285471 (3) Lymph nodes enlarged Current Visit: Yes Status: Acute Code(s): R59.9 - ENLARGED LYMPH NODES, UNSPECIFIED SNOMED Code(s): 29297132 (4) Alcohol abuse Current Visit: Yes Status: Acute Code(s): F10.10 - ALCOHOL ABUSE, UNCOMP LICATED SNOMED Code(s): 00852768 (5) Cirrhosis of liver Current Visit: Yes Status: Acute Code(s): K74.60 - UNSPECIFIED CIRRHOSIS OF LIVER SNOMED Code(s): 94466135 (6) Pancytopenia Current Visit: Yes Status: Acute Code(s): D61.818 - OTHER PANCYTOPENIA SNOMED Code(s): 680769065 Plan: 1. Continue symptomatic and supportive care 2. Daily CBC transfuse for hemoglobin less than 7 3. Daily CMP, INR 4. Consult hematology/oncology 5. Protonix 40 mg twice daily for GI prophylaxis 6. Patient may have clear liquid diet 7. Plan for EGD and colonoscopy on Friday 8. Rest of medical management per primary medical team Thank you for this consultation, we will continue to follow. Dr. Mag Curry I agree with the dictator's note, documented as a scribe by Jazlyn Skinner.
[2024-02-25] MEDS ORDERED: RX INFO: IV CONTRAST WAS GIVEN 1 EACH MISC MISCELLANE PRN (13:18)
[2024-02-25] MEDS: FUROSEMIDE 10 MG/ML 4 ML VIAL IV STA (14:26)
--- NOTE | 2024-02-25 15:30 | P.PN ---
Subjective Progress Note Date: 02/25/24 Principal diagnosis: Chronic liver disease. Pulmonary consult dated February 24, 2024. This is a 43-year-old male seen in the emergency department, room 19. The patient has a history of heavy alcohol abuse. The patient states that he drinks at least a half a gallon of vodka every day. He presented to the emergency department with weakness, and was found to have a hemoglobin of 4.3. His stools have had bright red blood, as well as dark tarry stools, over the course of many weeks. The patient feels fatigued and tired. In addition, he complains of lower extremity edema. The patient recently started seeing a family doctor in [place]. The patient has not been to the doctor in many years. The patient states that he does not smoke. He has no past medical history, takes no medications at home. He is on room air, and is getting saline at 125 cc an hour. Packed red blood cells have been ordered. He apparently saw the nurse practitioner in his new doctor's office, who directed him to the ER, when the blood work showed a very low hemoglobin. Current labs include a white count of 2.1, hemoglobin 4.3, hematocrit 15.2, and a platelet count of 138,000. 137, pot assium 4.3, chlorides 107, CO2 23, anion gap 7, and creatinine 0.67. Glucose 104. Bilirubin 2.7. AST 74. ALT 26. Stools were positive for occult blood. Progress note dated February 25, 2024. 43-year-old male seen in the emergency room in consultation yesterday. We were asked to see him for a number of reasons including possible alcohol withdrawal syndrome, as well as severe anemia. His hemoglobin on admission was 4.3. The patient drinks 1/2 gallon of vodka every day. The patient has been seen by gastroenterology, and is apparently going to have a scope. Currently, the patient is on room air. He is not receiving any IV fluids. Since he has been here, he has received a total of 5 units of PRBCs. Most recent labs include a white count 1.9, hemoglobin 6, hematocrit 20.8, platelet count 129,000. Sodium 138, potassium 3.9, chlorides 111, CO2 20, BUN 7, creatinine 0.63. Bilirubin is 4.[address] scan of the abdomen and pelvis reveals nodularity of the liver, with splenomegaly, consistent with cirrhosis with portal hypertension. There is cholelithiasis, and fat stranding in the upper abdomen with mildly enlarged lymph nodes, potentially consistent with lymphoma. Objective - Vital Signs Vital signs: Vital Signs Temp 98.2 F 02/25/24 14:48 Pulse 98 02/25/24 14:48 Resp 18 02/25/24 14:48 BP 145/79 02/25/24 14:48 Pulse Ox 99 02/25/24 14:48 FiO2 Intake & Output 02/24/24 02/25/24 02/25/24 18:59 06:59 18:59 Intake Total 289 574 890 Balance 289 574 890 Weight 134.717 kg 133.8 kg Intake: Oral 580 Blood Product 289 574 310 Rc As-1 Unit 0 [id number] Rc As-1 Unit 0 [id number] Rc As-1 Unit 0 310 [id number] Rc Pheresis 2 As3 Unit 288 [id number] Rc Pheresis 2 As3 Unit 289 [id number] Rc Pheresis As-3 Unit 286 [id number] Other: Voiding Method Toilet Toilet # Voids 2 - Exam No acute distress, oriented 3. No respiratory distress. Currently on room air. HEENT examination is grossly unremarkable. Mucous membranes are moist. No oral lesions. Scleral icterus is noted. Neck supple. Full range of motion. No adenopathy thyromegaly or neck vein distention. Cardiovascular examination reveals regular rhythm rate. S1-S2 normal. No S3 or S4. No discernible murmur noted. Heart rate 83 bpm. Lungs reveal clear breath sounds. Breath sounds are equal bilaterally. No adventitious lung sounds including wheezes rhonchi or crackles. Abdomen soft bowel sounds are heard. No masses or tenderness. Extremities are intact. No cyanosis or clubbing. 3+ edema is noted. Skin is without rash or lesion. Neurologic examination is brief but nonfocal. - Labs CBC & Chem 7: 02/25/24 07:52 02/25/24 07:52 Labs: Abnormal Lab Results - Last 24 Hours (Table) 02/24/24 02/24/24 02/24/24 Range/Units 13:41 14:05 16:06 WBC (3.8-10.6) k/uL RBC (4.30-5.90) m/uL Hgb (13.0-17.5) gm/dL Hct (39.0-53.0) % MCV (80.0-100.0) fL MCH (25.0-35.0) pg MCHC (31.0-37.0) g/dL RDW (11.5-15.5) % Plt Count (150-450) k/uL Neutrophils # (1.3-7.7) k/uL Lymphocytes # (1.0-4.8) k/uL PT 14.1 H (10.0-12.5) sec INR 1.4 H (<1.2) Chloride (98-107) mmol/L Carbon Dioxide (22-30) mmol/L BUN (9-20) mg/dL Creatinine (0.66-1.25) mg/dL Iron 14 L (65-175) UG/DL % Saturation 3.20 L (15.00-50.00) Total Bilirubin (0.2-1.3) mg/dL Total Protein (6.3-8.2) g/dL Albumin (3.5-5.0) g/dL Crossmatch See Detail 02/25/24 02/25/24 02/25/24 Range/Units 00:21 07:52 07:52 WBC 2.4 L 1.9 L (3.8-10.6) k/uL RBC 2.32 L 2.66 L (4.30-5.90) m/uL Hgb 5.0 L* 6.0 L* (13.0-17.5) gm/dL Hct 17.6 L* 20.8 L (39.0-53.0) % MCV 76.0 L 78.4 L (80.0-100.0) fL MCH 21.5 L 22.4 L (25.0-35.0) pg MCHC 28.3 L 28.6 L (31.0-37.0) g/dL RDW 18.5 H 19.1 H (11.5-15.5) % Plt Count 123 L 129 L (150-450) k/uL Neutrophils # 1.1 L (1.3-7.7) k/uL Lymphocytes # 0.6 L (1.0-4.8) k/uL PT (10.0-12.5) sec INR (<1.2) Chloride 111 H (98-107) mmol/L Carbon Dioxide 20 L (22-30) mmol/L BUN 7 L (9-20) mg/dL Creatinine 0.63 L (0.66-1.25) mg/dL Iron (65-175) UG/DL % Saturation (15.00-50.00) Total Bilirubin 4.7 H (0.2-1.3) mg/dL Total Protein 6.0 L (6.3-8.2) g/dL Albumin 3.4 L (3.5-5.0) g/dL Crossmatch Assessment and Plan Assessment: Chronic gastrointestinal bleeding, with a hemoglobin of 4.3. Suspect chronic liver disease from alcohol abuse. CT scan evidence liver cirrhosis, splenomegaly, and portal hypertension. Rule out alcohol withdrawal syndrome. Chronic lower extremity edema, possibly related to chronic liver disease. Hyperbilirubinemia. 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 Plan: Plan dated February 24, 2024. The patient is seen in the emergency department, room 19. The patient apparently drinks 1/2 gallon of vodka every night. The patient presented with GI bleeding. He said black tarry stools, bright red blood in his stools. His hemoglobin on admission was 4.3. In addition, he complains of extreme fatigue, some mild shortness of breath on exertion, and significant lower extremity edema. Labs, x-rays, medications are reviewed. Prognosis is guarded. We will continue to follow and make recommendations along the way. Packed red blood cells have been ordered for this patient. Plan dated February 25, 2024. The patient has been seen by GI service. The patient is apparently going to be scheduled for either an EGD, and/or colonoscopy. The patient has received a total of 5 units of packed red blood cells. Labs, x-rays, medications are reviewed. CT scan of the abdomen was consistent with liver cirrhosis, splenomegaly, and portal hypertension. We will continue to follow. Prognosis is guarded. The patient is counseled about the importance of alcohol cessation. Time with Patient: Less than 30
[2024-02-25 17:27] LABS: LDH 189 U/L (120-246); Rheumatoid Factor, Qnt <15 IU/mL (0-15)
[2024-02-25] MEDS: SODIUM FERRIC GLUCONAT-SUCROSE 125 MG in SODIUM CHLORIDE 0.9% 100 ML IVPB SCH (17:27)
[2024-02-25 18:17] LABS: Anisocytosis Slight; HCT 25.1 % (39.0-53.0); Hypochromasia Marked; MCH 24.2 pg (25.0-35.0); MCHC 31.1 g/dL (31.0-37.0); Mean Platelet Volume 8.3; Microcytosis Slight; Platelet Count 128 k/uL (150-450); Poikilocytosis Marked; RBC 3.22 m/uL (4.30-5.90); RDW 18.6 % (11.5-15.5); WBC 2.3 k/uL (3.8-10.6)
[2024-02-25 18:21] LABS: HGB 7.8 gm/dL (13.0-17.5)
[2024-02-26 00:45] LABS: Anisocytosis Slight; HCT 24.1 % (39.0-53.0); HGB 7.3 gm/dL (13.0-17.5); Hypochromasia Marked; MCH 23.3 pg (25.0-35.0); MCHC 30.2 g/dL (31.0-37.0); MCV 77.1 fL (80.0-100.0); Mean Platelet Volume 7.8; Microcytosis Moderate; Platelet Count 131 k/uL (150-450); Poikilocytosis Marked; RBC 3.13 m/uL (4.30-5.90); RDW 19.5 % (11.5-15.5); WBC 2.8 k/uL (3.8-10.6)
[2024-02-26 03:49] LABS: Erythrocyte Sedimentation Rate 5 mm/Hr (0-15)
--- NOTE | 2024-02-26 04:38 | CT ---
EXAMINATION TYPE: CT chest w con DATE OF EXAM: 02/25/2024 COMPARISON: CT abdomen and pelvis 1 day earlier HISTORY: WEAKNESS/ LOW HEMOGLOBIN CT DLP: 516 mGycm. Automated Exposure Control for Dose Reduction was Utilized. TECHNIQUE: CT scan of the thorax is performed following with IV Contrast, patient injected with 100 ml mL of Isovue 300. FINDINGS: LUNGS: Small right pleural effusion and trace left-sided pleural effusion. Associated bibasilar compr essive atelectasis. No pneumothorax seen bilaterally. MEDIASTINUM: There are no greater than 1 cm hilar or mediastinal lymph nodes. No cardiomegaly or pe ricardial effusion is seen. OTHER: Ascites adjacent to liver is redemonstrated. IMPRESSION: 1. Small to tiny right greater than left pleural effusions with associated bibasilar compressive atel ectasis.
[2024-02-26 04:46] LABS: Immunoglobulin M 73.7 mg/dL (40.0-280.0); Protein, Total 6.6 g/dL (6.2-8.2)
[2024-02-26 07:53] LABS: INR 1.4 (<1.2); Prothrombin Time 14.5 sec (10.0-12.5)
--- NOTE | 2024-02-26 07:53 | P.CONS ---
History of Present Illness - Reason for Consult Consult date: 02/25/[address] Requesting physician: Jazlyn Pettit - Chief Complaint anemia - History of Present Illness Radha is a 43-year-old male with a significant history of alcohol abuse. Consult was placed for abnormal lymphadenopathy on CT scan. Pt presented to the emergency department for further evaluation by his primary care physician after oupt blood work showed low hemoglobin. Patient reports has been having melena intermittently over the last couple weeks. Also reports hematemesis approximately 3 months ago. Denies nausea vomiting abdominal pain. Denies any previous history of known anemia. Denies previous EGD/colonoscopy. Patient states he drinks daily approximately half a gallon of vodka. Last drink was 48 hours ago. GI has been consulted and plan for endoscopic evaluation on Friday. On admission hemoglobin was noted at 4.3, MCV 72.9, MCH 20.4. WBC 2.1, platelets 138,000. Iron saturation 3.2%. 4 units PRBCs ordered. Creatinine 0.63, GFR greater than 90. Bilirubin elevated at 2.7, AST 74, ALT 26, ALP 111. CT abdomen pelvis with contrast revealed fat stranding changes in upper abdomen unclear etiology, multiple lymph nodes which are prominent and mildly enlarged in the mesentery with adjacent fat stranding measuring up to 9 mm. Mesenteric adenitis and sclerosing pancolitis. Retroperitoneal lymph nodes measure up to 13 mm. Nodularity to liver with splenomegaly. Cholelithiasis. Review of Systems 10 point ROS is negative except as stated in the HPI Past Medical History Past Medical History: No Reported History History of Any Multi-Drug Resistant Organisms: None Reported Past Surgical History: No Surgical Hx Reported Past Anesthesia/Blood Transfusion Reactions: No Reported Reaction Past Psychological History: No Psychological Hx Reported Smoking Status: Never smoker Past Alcohol Use History: Daily Past Drug Use History: Marijuana Medications and Allergies Home Medications Medication Instructions Recorded Confirmed Type Furosemide [Lasix] 40 mg PO DAILY 02/24/24 02/24/24 History Allergies Allergy/AdvReac Type Severity Reaction Status Date / Time No Known Allergies Allergy Verified 02/24/24 16:35 Physical Exam Vitals: Vital Signs Temp Pulse Pulse Resp BP BP Pulse Ox 02/25/24 11:15 98.1 F 93 16 125/65 100 02/25/24 10:54 98.0 F 96 16 118/68 96 02/25/24 10:45 98.1 F 96 18 131/72 99 02/25/24 08:36 98.0 F 84 18 137/64 96 02/25/24 07:10 97.9 F 86 18 133/72 98 02/25/24 05:59 98.2 F 82 16 153/82 97 02/25/24 05:55 98.2 F 80 18 153/82 96 02/25/24 05:39 98.2 F 82 16 131/57 98 02/25/24 05:19 98.1 F 79 16 138/64 98 02/25/24 04:03 98.1 F 80 16 133/78 96 02/25/24 03:43 98.0 F 92 16 149/74 97 02/25/24 03:36 98.0 F 85 16 132/64 98 02/24/24 23:05 98.2 F 93 16 128/65 97 02/24/24 22:46 98.4 F 02/24/24 22:25 84 18 141/69 97 02/24/24 22:00 85 16 121/56 96 02/24/24 21:30 91 18 118/56 96 02/24/24 21:00 85 16 117/73 96 02/24/24 20:30 94 16 133/69 98 02/24/24 20:15 94 18 134/71 100 02/24/24 20:09 90 16 128/73 98 02/24/24 19:48 98.1 F 106 H 18 150/69 100 02/24/24 19:40 93 18 122/69 98 02/24/24 18:20 98.9 F 96 18 121/67 98 02/24/24 18:00 98 16 124/61 96 02/24/24 17:30 95 18 128/65 100 02/24/24 17:00 86 16 124/65 100 02/24/24 16:45 93 18 120/62 100 02/24/24 16:30 96 16 130/64 99 02/24/24 16:19 98.3 F 93 16 125/68 97 02/24/24 16:14 88 18 129/64 99 02/24/24 16:09 98.6 F 94 18 131/64 99 02/24/24 14:04 95 18 123/53 100 Intake and Output 02/24/24 02/25/2402/24/24 22:59 06:59 14:59 Intake Total 575 288 310 Balance 575 288 310 Intake: Blood Product 575 288 310 Unit 0 Rc As-1 Unit 0 310 [id number] Rc Pheresis 2 As3 Unit 288 [id number] Rc Pheresis 2 As3 Unit 289 [id number] Rc Pheresis As-3 Unit 286 [id number] Other: Voiding Method Toilet Toilet # Voids 2 Weight 133.8 kg - Constitutional General appearance: average body habitus, no acute distress - EENT Eyes: EOMI ENT: hearing grossly normal - Respiratory Respiratory: bilateral: CTA - Cardiovascular Rhythm: regular Heart sounds: normal: S1, S2 - Gastrointestinal General gastrointestinal: soft, no tenderness - Integumentary Integumentary: no cyanotic - Neurologic Neurologic: CNII-XII intact - Musculoskeletal Musculoskeletal: strength equal bilaterally - Psychiatric Psychiatric: A&O x's 3 Results CBC & Chem 7: 02/25/24 23:52 02/25/24 07:52 Labs: Abnormal Lab Results - Last 24 Hours (Table) 02/24/24 02/24/24 02/24/24 Range/Units 13:41 13:41 14:05 WBC 2.1 L (3.8-10.6) k/uL RBC 2.09 L (4.30-5.90) m/uL Hgb 4.3 L* (13.0-17.5) gm/dL Hct 15.2 L* (39.0-53.0) % MCV 72.9 L (80.0-100.0) fL MCH 20.4 L (25.0-35.0) pg MCHC 27.9 L (31.0-37.0) g/dL RDW 17.9 H (11.5-15.5) % Plt Count 138 L (150-450) k/uL Neutrophils # 1.2 L (1.3-7.7) k/uL Lymphocytes # 0.6 L (1.0-4.8) k/uL PT (10.0-12.5) sec INR (<1.2) Chloride (98-107) mmol/L Carbon Dioxide (22-30) mmol/L BUN 7 L (9-20) mg/dL Creatinine (0.66-1.25) mg/dL Glucose 104 H (74-99) mg/dL Iron 14 L (65-175) UG/DL % Saturation 3.20 L (15.00-50.00) Total Bilirubin 2.7 H (0.2-1.3) mg/dL AST 74 H (17-59) U/L Total Protein (6.3-8.2) g/dL Albumin (3.5-5.0) g/dL Crossmatch See Detail 02/24/24 02/25/24 02/25/24 Range/Units 16:06 00:21 07:52 WBC 2.4 L (3.8-10.6) k/uL RBC 2.32 L (4.30-5.90) m/uL Hgb 5.0 L* (13.0-17.5) gm/dL Hct 17.6 L* (39.0-53.0) % MCV 76.0 L (80.0-100.0) fL MCH 21.5 L (25.0-35.0) pg MCHC 28.3 L (31.0-37.0) g/dL RDW 18.5 H (11.5-15.5) % Plt Count 123 L (150-450) k/uL Neutrophils # (1.3-7.7) k/uL Lymphocytes # (1.0-4.8) k/uL PT 14.1 H (10.0-12.5) sec INR 1.4 H (<1.2) Chloride 111 H (98-107) mmol/L Carbon Dioxide 20 L (22-30) mmol/L BUN 7 L (9-20) mg/dL Creatinine 0.63 L (0.66-1.25) mg/dL Glucose (74-99) mg/dL Iron (65-175) UG/DL % Saturation (15.00-50.00) Total Bilirubin 4.7 H (0.2-1.3) mg/dL AST (17-59) U/L Total Protein 6.0 L (6.3-8.2) g/dL Albumin 3.4 L (3.5-5.0) g/dL Crossmatch 02/25/24 Range/Units 07:52 WBC 1.9 L (3.8-10.6) k/uL RBC 2.66 L (4.30-5.90) m/uL Hgb 6.0 L* (13.0-17.5) gm/dL Hct 20.8 L (39.0-53.0) % MCV 78.4 L (80.0-100.0) fL MCH 22.4 L (25.0-35.0) pg MCHC 28.6 L (31.0-37.0) g/dL RDW 19.1 H (11.5-15.5) % Plt Count 129 L (150-450) k/uL Neutrophils # 1.1 L (1.3-7.7) k/uL Lymphocytes # 0.6 L (1.0-4.8) k/uL PT (10.0-12.5) sec INR (<1.2) Chloride (98-107) mmol/L Carbon Dioxide (22-30) mmol/L BUN (9-20) mg/dL Creatinine (0.66-1.25) mg/dL Glucose (74-99) mg/dL Iron (65-175) UG/DL % Saturation (15.00-50.00) Total Bilirubin (0.2-1.3) mg/dL AST (17-59) U/L Total Protein (6.3-8.2) g/dL Albumin (3.5-5.0) g/dL Crossmatch CT scan - abdomen: report reviewed CT scan - pelvis: report reviewed Assessment and Plan (1) Alcohol abuse Current Visit: Yes Status: Acute Priority: High Code(s): F10.10 - ALCOHOL ABUSE, UNCOMPLICATED SNOMED Code(s): 80110828 (2) Cirrhosis of liver Current Visit: Yes Status: Acute Priority: High Code(s): K74.60 - UNSPECIFIED CIRRHOSIS OF LIVER SNOMED Code(s): 61878890 (3) Lymph nodes enlarged Current Visit: Yes Status: Acute Priority: Medium Code(s): R59.9 - ENLARGED LYMPH NODES, UNSPECIFIED SNOMED Code(s): 40644977 (4) Pancytopenia Current Visit: Yes Status: Acute Priority: High Code(s): D61.818 - OTHER PANCYTOPENIA SNOMED Code(s): 387778747 Plan: Pancytopenia: Presented for abnormal outpt lab work, low hgb. Patient reports has been having melena intermittently over the last couple weeks. Also reports hematemesis approximately 3 months ago. History of heavy alcohol use. No previous EGD/colonoscopy -On admission hemoglobin was noted at 4.3, MCV 72.9, MCH 20.4. BC 2.1, platelets 138,000, differential showing mild decrease in neutrophils and lymphocytes, other no significant abnormalities. Iron saturation 3.2%. 4 units PRBCs given, with repeat hgb today 6.0. 2 additional units PRBCs ordered -Parenteral iron ordered -Creatinine 0.63, GFR greater than 90. Bilirubin elevated at 2.7, AST 74, ALT 26, ALP 111. -GI has been consulted and plan for endoscopic evaluation on Friday -Anemia r/t acute GI bleed. Mild leukopenia and thrombocytopenia, reactive to acute condition and known cirrhosis, as well as bone marrow suppression r/t to heavy alcohol use -Will obtain pancytopenia workup to r/o other etiologies -Continue to monitor CBC. Please transfuse for hgb less than [address], Abdominal lymphadenopathy: -CT abdomen pelvis with contrast revealed fat stranding changes in upper abdomen unclear etiology, multiple lymph nodes which are prominent and mildly enlarged in the mesentery with adjacent fat stranding measuring up to 9 mm. Mesenteric adenitis and sclerosing pancolitis. Retroperitoneal lymph nodes measure up to 13 mm. Nodularity to liver with splenomegaly. Cholelithiasis -Denies history of cancer -Reported mild lymphadenopathy rather non-specific. Will obtain CT chest, if no significant findings, recommend repeat CT AP in 3-4 months to reevaluate attests:I have seen and examined pt, performed H&P, developed impression and plan of care. Discussed with dictator. Agree with documentation, dictated as a scribe.
[2024-02-26 08:09] LABS: Anisocytosis Slight; Basophils % (A) 1 %; Eosinophils % (A) 1 %; HCT 26.8 % (39.0-53.0); HGB 8.2 gm/dL (13.0-17.5); Hypochromasia Marked; Lymphocytes # (A) 0.9 k/uL (1.0-4.8); Lymphocytes % (A) 34 %; MCH 23.6 pg (25.0-35.0); MCHC 30.4 g/dL (31.0-37.0); MCV 77.7 fL (80.0-100.0); Mean Platelet Volume 8.1; Microcytosis Slight; Monocytes # (A) 0.3 k/uL (0-1.0); Monocytes % (A) 12 %; Neutrophils # (A) 1.3 k/uL (1.3-7.7); Neutrophils % (A) 51 %; Platelet Count 141 k/uL (150-450); Poikilocytosis Marked; RBC 3.45 m/uL (4.30-5.90); RDW 19.1 % (11.5-15.5); WBC 2.5 k/uL (3.8-10.6)
[2024-02-26 08:18] LABS: ALT 24 U/L (4-49); AST 58 U/L (17-59); African American GFR (CKD) >90 (>60 ml/min/1.73 sqM); Albumin 3.7 g/dL (3.5-5.0); Alkaline Phosphatase 107 U/L (38-126); Anion Gap 8 mmol/L; Blood Urea Nitrogen 4 mg/dL (9-20); Calcium 9.2 mg/dL (8.4-10.2); Carbon Dioxide 24 mmol/L (22-30); Chloride 108 mmol/L (98-107); Glucose 88 mg/dL (74-99); Non-African American GFR(CKD) >90 (>60 ml/min/1.73 sqM); Potassium 3.5 mmol/L (3.5-5.1); Sodium 140 mmol/L (137-145); Total Protein 6.4 g/dL (6.3-8.2)
[2024-02-26 11:47] LABS: Anisocytosis Slight; HCT 28.4 % (39.0-53.0); HGB 8.6 gm/dL (13.0-17.5); Hypochromasia Marked; MCH 23.7 pg (25.0-35.0); MCHC 30.3 g/dL (31.0-37.0); MCV 78.2 fL (80.0-100.0); Microcytosis Slight; Platelet Count 167 k/uL (150-450); Poikilocytosis Marked; RBC 3.63 m/uL (4.30-5.90); WBC 2.9 k/uL (3.8-10.6)
--- NOTE | 2024-02-26 12:34 | P.PN ---
Subjective Progress Note Date: 02/26/24 Principal diagnosis: Anemia, GI bleed This is a pleasant 43-year-old male who was sent into the emergency department for further evaluation from his primary care physician after getting some blood work done and having low hemoglobin. Patient presented to the emergency department with reporting blood in his stools 2-3 times a week for the last 3 months duration, weakness, and weight loss. He was noted to have a hemoglobin of 4.3 he was transfused with a repeat hemoglobin of 5.0. He had a total of 4 units of blood transfusion. Awaiting morning labs. Patient states that he has not seen a physician for several months since he had moved here from [place]. States his has health additions and they have been taking care of her. Again he states that he will have blood in his stool 2-3 times a week can be bright red at times this has been occurring for last 3 months duration. He also states that he has occasional vomiting, no hematemesis. Denies any abdominal p ain but states that he has experienced some weight loss. He was also noted to have elevated LFTs with and admits to history of alcohol abuse and has cut back to 3 drinks a day. States that he was drinking 30 drinks a day for the last 15 years. He had a CT of the abdomen and pelvis with findings of multiple lymph nodes and cirrhosis of the liver with portal hypertension. He currently denies any abdominal pain, no nausea or vomiting. States that he did have some bright red blood per rectum with a bowel movement this morning. Denies any previous history of upper or lower endoscopy. Denies any anticoagulation and no regular NSAID use. 02/26/2024 Patient seen and examined today as a follow-up. He is up and ambulating in the room. He has no acute changes through the night. States no bowel movement today but he did have another bowel movement yesterday evening with blood in it. He is status post 6 units of blood repeat hemoglobin today 8.2. Patient had a chest CT that reported small to tiny right greater than left pleural effusions with associated bibasilar compressive atelectasis. Hematology following. Objective - Vital Signs Vital signs: Vital Signs Temp 97.6 F 02/26/24 08:40 Pulse 103 H 02/26/24 08:40 Resp 18 02/26/24 08:40 BP 126/74 02/26/24 08:40 Pulse Ox 100 02/26/24 08:40 FiO2 Intake & Output 02/25/24 02/26/24 02/26/24 18:59 06:59 18:59 Intake Total 1510 Balance 1510 Weight 123.3 kg Intake: Oral 580 Blood Product 930 Rc As-1 Unit 310 [id number] Rc As-1 Unit 310 [id number] Rc As-1 Unit 310 [id number] Other: Voiding Method Toilet Toilet # Voids 12 2 # Bowel Movements 1 - Exam General appearance: The patient is alert, oriented, appears in no acute distress. HET: Head is normocephalic and atraumatic. Conjunctiva pink. Sclera anicteric. Neck: Supple without lymphadenopathy. Abdomen: Soft, nontender, nondistended with bowel sounds. No guarding or rigidity. Extremities: Normal skin color and turgor. No pedal edema Skin: No rashes, no jaundice Neurological: No focal deficits. Alert and oriented. - Labs CBC & Chem 7: 02/26/24 11:11 02/26/24 07:01 Labs: Abnormal Lab Results - Last 24 Hours (Table) 02/24/24 02/24/24 02/25/24 Range/Units 13:41 14:05 17:35 WBC 2.3 L (3.8-10.6) k/uL RBC 3.22 L (4.30-5.90) m/uL Hgb 7.8 L D (13.0-17.5) gm/dL Hct 25.1 L (39.0-53.0) % MCV 78.0 L (80.0-100.0) fL MCH 24.2 L (25.0-35.0) pg MCHC (31.0-37.0) g/dL RDW 18.6 H (11.5-15.5) % Plt Count 128 L (150-450) k/uL Lymphocytes # (1.0-4.8) k/uL PT (10.0-12.5) sec INR (<1.2) Chloride (98-107) mmol/L BUN (9-20) mg/dL Ferritin 12.0 L (22.0-322.0) ng/mL Total Bilirubin (0.2-1.3) mg/dL Crossmatch See Detail 02/25/24 02/26/24 02/26/24 Range/Units 23:52 07:01 07:01 WBC 2.8 L 2.5 L (3.8-10.6) k/uL RBC 3.13 L 3.45 L (4.30-5.90) m/uL Hgb 7.3 L 8.2 L (13.0-17.5) gm/dL Hct 24.1 L 26.8 L (39.0-53.0) % MCV 77.1 L 77.7 L (80.0-100.0) fL MCH 23.3 L 23.6 L (25.0-35.0) pg MCHC 30.2 L 30.4 L (31.0-37.0) g/dL RDW 19.5 H 19.1 H (11.5-15.5) % Plt Count 131 L 141 L (150-450) k/uL Lymphocytes # 0.9 L (1.0-4.8) k/uL PT 14.5 H (10.0-12.5) sec INR 1.4 H (<1.2) Chloride (98-107) mmol/L BUN (9-20) mg/dL Ferritin (22.0-322.0) ng/mL Total Bilirubin (0.2-1.3) mg/dL Crossmatch 02/26/24 Range/Units 07:01 WBC (3.8-10.6) k/uL RBC (4.30-5.90) m/uL Hgb (13.0-17.5) gm/dL Hct (39.0-53.0) % MCV (80.0-100.0) fL MCH (25.0-35.0) pg MCHC (31.0-37.0) g/dL RDW (11.5-15.5) % Plt Count (150-450) k/uL Lymphocytes # (1.0-4.8) k/uL PT (10.0-12.5) sec INR (<1.2) Chloride 108 H (98-107) mmol/L BUN 4 L (9-20) mg/dL Ferritin (22.0-322.0) ng/mL Total Bilirubin 5.0 H (0.2-1.3) mg/dL Crossmatch Assessment and Plan (1) Anemia Narrative/Plan: 43-year-old male presenting with low hemoglobin with lower GI bleed over the last 3 months duration. This in a patient who is noted to have pancytopenia and history of heavy alcohol abuse over the last 15 years duration. Anemia likely multifactorial including acute blood loss anemia as well as underlying cirrhosis of the liver with portal hypertension and of course need to consider possible other etiologies such as lymphoma with multiple enlarged lymph nodes and recent blood loss. Nonetheless patient has not had previous endoscopic evaluation and is recommended that he have upper and lower endoscopy. Transfuse as needed and will consult hematology/oncology Current Visit: Yes Status: Acute Code(s): D64.9 - ANEMIA, UNSPECIFIED S NOMED Code(s): 324506666 (2) Rectal bleeding Current Visit: Yes Status: Acute Code(s): K62.5 - HEMORRHAGE OF ANUS AND RECTUM SNOMED Code(s): 55781478 (3) Lymph nodes enlarged Current Visit: Yes Status: Acute Priority: Medium Code(s): R59.9 - ENLARGED LYMPH NODES, UNSPECIFIED SNOMED Code(s): 52407872 (4) Alcohol abuse Current Visit: Yes Status: Acute Priority: High Code(s): F10.10 - ALCOHOL ABUSE, UNCOMPLICATED SNOMED Code(s): 02175658 (5) Cirrhosis of liver Current Visit: Yes Status: Acute Priority: High Code(s): K74.60 - UNSPECIFIED CIRRHOSIS OF LIVER SNOMED Code(s): 92198938 (6) Pancytopenia Current Visit: Yes Status: Acute Priority: High Code(s): D61.818 - OTHER PANCYTOPENIA SNOMED Code(s): 450573251 Plan: 1. Continue symptomatic and supportive care 2. Daily CBC transfuse for hemoglobin less than 7 3. Daily CMP, INR 4. Consult hematology/oncology, appreciate their recommendations 5. Protonix 40 mg twice daily for GI prophylaxis 6. Patient may have clear liquid diet, n.p.o. after midnight 7. Plan for EGD and colonoscopy on Friday 8. Rest of medical management per primary medical team Thank you for this consultation, we will continue to follow. Dr. Mag Curry I agree with the dictator's note, documented as a scribe by Jazlyn Skinner.
--- NOTE | 2024-02-26 12:49 | CA ---
Transthoracic Echo Report Name: Tobias Nguyễn Age: 43 Gender: M : 1980 Exam Date: 02/25/2024 15:00 Exam Location: [facility] Ht (in): 80 Wt (lb): 297 Ordering Physician: Benson Ty Attending/Referring Phys: Computer Network Specialist Nila Woodson RDCS Procedure CPT: Indications: Evaluate structure and function of heart Cardiac Hx: Technical Quality: Fair Contrast 1: Total Dose (mL): Contrast 2: Total Dose (mL): MEASUREMENTS (Male / Female) Normal Values 2D ECHO LV Diastolic Diameter PLAX 6.2 cm 4.2 - 5.9 / 3.9 - 5.3 cm LV Systolic Diameter PLAX 4.3 cm IVS Diastolic Thickness 0.9 cm 0.6 - 1.0 / 0.6 - 0.9 cm LVPW Diastolic Thickness 1.1 cm 0.6 - 1.0 / 0.6 - 0.9 cm LV Relative Wall Thickness 0.3 LVOT Diameter 2.7 cm LV Diastolic Volume MOD 4C 207.3 cm??? LV Systolic Volume MOD 4C 112.7 cm??? LV Ejection Fraction MOD 4C 45.6 % LV Cardiac Index MOD 4C 3327.1 cm???/min???m??? LV Diastolic Length 4C 10.2 cm LV Systolic Length 4C 8.5 cm LA Volume 111.9 cm??? 18 - 58 / 22 - 52 cm??? LA Volume Index 40.2 cm???/m??? 16 - 28 cm???/m??? Ascending Aorta Diameter 3.3 cm DOPPLER AV Peak Velocity 170.1 cm/s AV Peak Gradient 11.6 mmHg AV Mean Velocity 109.9 cm/s AV Mean Gradient 5.5 mmHg AV Velocity Time Integral 25.1 cm LVOT Peak Velocity 156.5 cm/s LVOT Peak Gradient 9.8 mmHg LVOT Velocity Time Integral 27.7 cm LVOT Stroke Volume 163.3 cm??? LVOT Stroke Volume Index 60.0 ml/m??? LVOT Cardiac Index 5742.4 cm???/min???m??? AV Area Cont Eq vti 6.5 cm??? AV Area Cont Eq pk 5.4 cm??? PV Peak Velocity 136.6 cm/s PV Peak Gradient 7.5 mmHg FINDINGS Left Ventricle Left ventricular ejection fraction is estimated at 55-60 %. Mildly increased left ventricular diastolic diameter. Left ventricular cavity size normal. No obvious regional wall motion abnormalities. Indeterminite diastolic dysfunction. Right Ventricle Normal right ventricular size and function. Unable to estimate the right ventricular systolic pressure. Right Atrium Normal right atrial size. Left Atrium Mild left atrial dilatation. Mitral Valve Structurally normal mitral valve. No evidence for mitral valve prolapse. No mitral stenosis. Cjjv-[id number] mitral regurgitation. Aortic Valve Trileaflet aortic valve. No aortic valve stenosis or regurgitation. Tricuspid Valve Structurally normal tricuspid valve. No tricuspid stenosis. No tricuspid regurgitation. Pulmonic Valve Structurally normal pulmonic valve. No pulmonic stenosis. No pulmonic regurgitation. Pericardium No pericardial effusion. Aorta Normal size aortic root and proximal ascending aorta. CONCLUSIONS Left ventricular ejection fraction 55-60% Plim-ey-lnzqllud mitral regurgitation No tricuspid regurgitation No pericardial effusion Previewed by: Dr. Lee Tsang DO (Electronically Signed) Final Date: 26 February 2024 12:48
--- NOTE | 2024-02-26 12:59 | P.PN ---
Subjective Progress Note Date: 02/26/24 Principal diagnosis: Chronic liver disease. Pulmonary consult dated February 24, 2024. This is a 43-year-old male seen in the emergency department, room 19. The patient has a history of heavy alcohol abuse. The patient states that he drinks at least a half a gallon of vodka every day. He presented to the emergency department with weakness, and was found to have a hemoglobin of 4.3. His stools have had bright red blood, as well as dark tarry stools, over the course of many weeks. The patient feels fatigued and tired. In addition, he complains of lower extremity edema. The patient recently started seeing a family doctor in [place]. The patient has not been to the doctor in many years. The patient states that he does not smoke. He has no past medical history, takes no medications at home. He is on room air, and is getting saline at 125 cc an hour. Packed red blood cells have been ordered. He apparently saw the nurse practitioner in his new doctor's office, who directed him to the ER, when the blood work showed a very low hemoglobin. Current labs include a white count of 2.1, hemoglobin 4.3, hematocrit 15.2, and a platelet count of 138,000. 137, pot assium 4.3, chlorides 107, CO2 23, anion gap 7, and creatinine 0.67. Glucose 104. Bilirubin 2.7. AST 74. ALT 26. Stools were positive for occult blood. Progress note dated February 25, 2024. 43-year-old male seen in the emergency room in consultation yesterday. We were asked to see him for a number of reasons including possible alcohol withdrawal syndrome, as well as severe anemia. His hemoglobin on admission was 4.3. The patient drinks 1/2 gallon of vodka every day. The patient has been seen by gastroenterology, and is apparently going to have a scope. Currently, the patient is on room air. He is not receiving any IV fluids. Since he has been here, he has received a total of 5 units of PRBCs. Most recent labs include a white count 1.9, hemoglobin 6, hematocrit 20.8, platelet count 129,000. Sodium 138, potassium 3.9, chlorides 111, CO2 20, BUN 7, creatinine 0.63. Bilirubin is 4.[address] scan of the abdomen and pelvis reveals nodularity of the liver, with splenomegaly, consistent with cirrhosis with portal hypertension. There is cholelithiasis, and fat stranding in the upper abdomen with mildly enlarged lymph nodes, potentially consistent with lymphoma. Progress note dated February 26, 2024. 43-year-old male seen in the emergency department 2 days ago. He was admitted with a GI bleed. The patient is a heavy drinker, drinking 1/2 gallon of vodka every day at least. The patient's initial hemoglobin was 4.3. Since he has been here, he has received a total of 6 units of blood. Currently he is in his room, on the bed. He is on room air. No fluids. Apparently no scope today. It may occur tomorrow. His lower extremity edema, is much improved. Current labs are good white count 2.9, hemoglobin 8.6, hematocrit 28.4, and a platelet count of 167,000. PT 14.5, INR 1.4. Sodium 140, potassium 3.5, chlorides 108, CO2 24, BUN 4, creatinine 0.69. Total bilirubin is up to 5. Chest CT shows tiny bilateral effusions. Objective - Vital Signs Vital signs: Vital Signs Temp 98.1 F 02/26/24 11:21 Pulse 108 H 02/26/24 11:21 Resp 18 02/26/24 11:21 BP 129/73 02/26/24 11:21 Pulse Ox 99 02/26/24 11:21 FiO2 Intake & Output 02/25/24 02/26/24 02/26/24 18:59 06:59 18:59 Intake Total 1510 Balance 1510 Weight 123.3 kg Intake: Oral 580 Blood Product 930 As-1 Unit 310 [id number] As-1 Unit 310 [id number] As-1 Unit 310 [id number] Other: Voiding Method Toilet Toilet # Voids 12 2 # Bowel Movements 1 - Exam No acute distress, oriented 3. No respiratory distress. Currently on room air. HEENT examination is grossly unremarkable. Mucous membranes are moist. No oral lesions. Scleral icterus is noted. Neck supple. Full range of motion. No adenopathy thyromegaly or neck vein distention. Cardiovascular examination reveals regular rhythm rate. S1-S2 normal. No S3 or S4. No discernible murmur noted. Heart rate 100 bpm. Lungs reveal clear breath sounds. Breath sounds are equal bilaterally. No adventitious lung sounds including wheezes rhonchi or crackles. Room air saturation is 99%. Abdomen soft bowel sounds are heard. No masses or tenderness. Extremities are intact. No cyanosis or clubbing. 2+ edema is noted. Skin is without rash or lesion. Neurologic examination is brief but nonfocal. - Labs CBC & Chem 7: 02/26/24 11:11 02/26/24 07:01 Labs: Abnormal Lab Results - Last 24 Hours (Table) 02/24/24 02/24/24 02/25/24 Range/Units 13:41 14:05 17:35 WBC 2.3 L (3.8-10.6) k/uL RBC 3.22 L (4.30-5.90) m/uL Hgb 7.8 L D (13.0-17.5) gm/dL Hct 25.1 L (39.0-53.0) % MCV 78.0 L (80.0-100.0) fL MCH 24.2 L (25.0-35.0) pg MCHC (31.0-37.0) g/dL RDW 18.6 H (11.5-15.5) % Plt Count 128 L (150-450) k/uL Lymphocytes # (1.0-4.8) k/uL PT (10.0-12.5) sec INR (<1.2) Chloride (98-107) mmol/L BUN (9-20) mg/dL Ferritin 12.0 L (22.0-322.0) ng/mL Total Bilirubin (0.2-1.3) mg/dL Crossmatch See Detail 02/25/24 02/26/24 02/26/24 Range/Units 23:52 07:01 07:01 WBC 2.8 L 2.5 L (3.8-10.6) k/uL RBC 3.13 L 3.45 L (4.30-5.90) m/uL Hgb 7.3 L 8.2 L (13.0-17.5) gm/dL Hct 24.1 L 26.8 L (39.0-53.0) % MCV 77.1 L 77.7 L (80.0-100.0) fL MCH 23.3 L 23.6 L (25.0-35.0) pg MCHC 30.2 L 30.4 L (31.0-37.0) g/dL RDW 19.5 H 19.1 H (11.5-15.5) % Plt Count 131 L 141 L (150-450) k/uL Lymphocytes # 0.9 L (1.0-4.8) k/uL PT 14.5 H (10.0-12.5) sec INR 1.4 H (<1.2) Chloride (98-107) mmol/L BUN (9-20) mg/dL Ferritin (22.0-322.0) ng/mL Total Bilirubin (0.2-1.3) mg/dL Crossmatch 02/26/24 02/26/24 Range/Units 07:01 11:11 WBC 2.9 L (3.8-10.6) k/uL RBC 3.63 L (4.30-5.90) m/uL Hgb 8.6 L (13.0-17.5) gm/dL Hct 28.4 L (39.0-53.0) % MCV 78.2 L (80.0-100.0) fL MCH 23.7 L (25.0-35.0) pg MCHC 30.3 L (31.0-37.0) g/dL RDW 20.0 H (11.5-15.5) % Plt Count (150-450) k/uL Lymphocytes # (1.0-4.8) k/uL PT (10.0-12.5) sec INR (<1.2) Chloride 108 H (98-107) mmol/L BUN 4 L (9-20) mg/dL Ferritin (22.0-322.0) ng/mL Total Bilirubin 5.0 H (0.2-1.3) mg/dL Crossmatch Assessment and Plan Assessment: Chronic gastrointestinal bleeding, with a hemoglobin of 4.3. Suspect chronic liver disease from alcohol abuse. CT scan evidence liver cirrhosis, splenomegaly, and portal hypertension. Rule out alcohol withdrawal syndrome. Chronic lower extremity edema, possibly related to chronic liver disease, and/or chronic venous incompetence. Hyperbilirubinemia. 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 Plan: Plan dated February 24, 2024. The patient is seen in the emergency department, room 19. The patient apparently drinks 1/2 gallon of vodka every night. The patient presented with GI bleeding. He said black tarry stools, bright red blood in his stools. His hemoglobin on admission was 4.3. In addition, he complains of extreme fatigue, some mild shortness of breath on exertion, and significant lower extremity edema. Labs, x-rays, medications are reviewed. Prognosis is guarded. We will continue to follow and make recommendations along the way. Packed red blood cells have been ordered for this patient. Plan dated February 25, 2024. The patient has been seen by GI service. The patient is apparently going to be scheduled for either an EGD, and/or colonoscopy. The patient has received a total of 5 units of packed red blood cells. Labs, x-rays, medications are reviewed. CT scan of the abdomen was consistent with liver cirrhosis, splenomegaly, and portal hypertension. We will continue to follow. Prognosis is guarded. The patient is counseled about the importance of alcohol cessation. Plan dated February 26, 2024. The patient was to have an EGD, and colonoscopy, today, but apparently it was canceled. Hopefully, he will have those procedures tomorrow. Since he has been here, he has received a total of 6 units of blood. He is currently on room air. No IV fluids. His labs, x-rays, medications are reviewed. The patient's lower extremity edema is much improved. The patient is counseled about the importance of alcohol cessation. We will continue to follow. Prognosis is guarded. Time with Patient: Less than 30
--- NOTE | 2024-02-26 13:28 | P.PN ---
Subjective Progress Note Date: 02/26/24 Today's visit patient is resting comfortably in bed. Reports overall he is feeling well. States he had jasmeet blood in stool last night. Denies abdominal pain and nausea vomiting. S/p 6 units PRBC since admission. Today hemoglobin 8.2. WBC 2.5, platelets 141,000. Patient is scheduled for EGD and colonoscopy tomorrow Objective - Vital Signs Vital signs: Vital Signs Temp 98.1 F 02/26/24 11:21 Pulse 108 H 02/26/24 11:21 Resp 18 02/26/24 11:21 BP 129/73 02/26/24 11:21 Pulse Ox 99 02/26/24 11:21 FiO2 Intake & Output 02/25/24 02/26/24 02/26/24 18:59 06:59 18:59 Intake Total 1510 Balance 1510 Weight 123.3 kg Intake: Oral 580 Blood Product 930 Rc As-1 Unit 310 [id number] Rc As-1 Unit 310 [id number] Rc As-1 Unit 310 [id number] Other: Voiding Method Toilet Toilet # Voids 12 2 # Bowel Movements 1 - Constitutional General appearance: Present: average body habitus, no acute distress - EENT Eyes: Present: anicteric sclerae, EOMI ENT: Present: hearing grossly normal - Respiratory Details: breathing is even and unlabored - Cardiovascular Details: skin warm and dry - Gastrointestinal General gastrointestinal: Present: soft. Absent: tenderness - Integumentary Integumentary: Absent: cyanotic - Neurologic Neurologic: Present: CNII-XII intact - Musculoskeletal Musculoskeletal: Present: strength equal bilaterally - Psychiatric Psychiatric: Present: A&O x's 3 - Labs CBC & Chem 7: 02/26/24 11:11 02/26/24 07:01 Labs: Abnormal Lab Results - Last 24 Hours (Table) 02/24/24 02/24/24 02/25/24 Range/Units 13:41 14:05 17:35 WBC 2.3 L (3.8-10.6) k/uL RBC 3.22 L (4.30-5.90) m/uL Hgb 7.8 L D (13.0-17.5) gm/dL Hct 25.1 L (39.0-53.0) % MCV 78.0 L (80.0-100.0) fL MCH 24.2 L (25.0-35.0) pg MCHC (31.0-37.0) g/dL RDW 18.6 H (11.5-15.5) % Plt Count 128 L (150-450) k/uL Lymphocytes # (1.0-4.8) k/uL PT (10.0-12.5) sec INR (<1.2) Chloride (98-107) mmol/L BUN (9-20) mg/dL Ferritin 12.0 L (22.0-322.0) ng/mL Total Bilirubin (0.2-1.3) mg/dL Crossmatch See Detail 02/25/24 02/26/24 02/26/24 Range/Units 23:52 07:01 07:01 WBC 2.8 L 2.5 L (3.8-10.6) k/uL RBC 3.13 L 3.45 L (4.30-5.90) m/uL Hgb 7.3 L 8.2 L (13.0-17.5) gm/dL Hct 24.1 L 26.8 L (39.0-53.0) % MCV 77.1 L 77.7 L (80.0-100.0) fL MCH 23.3 L 23.6 L (25.0-35.0) pg MCHC 30.2 L 30.4 L (31.0-37.0) g/dL RDW 19.5 H 19.1 H (11.5-15.5) % Plt Count 131 L 141 L (150-450) k/uL Lymphocytes # 0.9 L (1.0-4.8) k/uL PT 14.5 H (10.0-12.5) sec INR 1.4 H (<1.2) Chloride (98-107) mmol/L BUN (9-20) mg/dL Ferritin (22.0-322.0) ng/mL Total Bilirubin (0.2-1.3) mg/dL Crossmatch 02/26/24 02/26/24 Range/Units 07:01 11:11 WBC 2.9 L (3.8-10.6) k/uL RBC 3.63 L (4.30-5.90) m/uL Hgb 8.6 L (13.0-17.5) gm/dL Hct 28.4 L (39.0-53.0) % MCV 78.2 L (80.0-100.0) fL MCH 23.7 L (25.0-35.0) pg MCHC 30.3 L (31.0-37.0) g/dL RDW 20.0 H (11.5-15.5) % Plt Count (150-450) k/uL Lymphocytes # (1.0-4.8) k/uL PT (10.0-12.5) sec INR (<1.2) Chloride 108 H (98-107) mmol/L BUN 4 L (9-20) mg/dL Ferritin (22.0-322.0) ng/mL Total Bilirubin 5.0 H (0.2-1.3) mg/dL Crossmatch - Imaging and Cardiology CT scan - chest: report reviewed Assessment and Plan (1) Alcohol abuse Current Visit: Yes Status: Acute Priority: High Code(s): F10.10 - ALCOHOL ABUSE, UNCOMPLICATED SNOMED Code(s): 15962753 (2) Cirrhosis of liver Current Visit: Yes Status: Acute Priority: High Code(s): K74.60 - UNSPECIFIED CIRRHOSIS OF LIVER SNOMED Code(s): 78558236 (3) Lymph nodes enlarged Current Visit: Yes Status: Acute Priority: Medium Code(s): R59.9 - ENLARGED LYMPH NODES, UNSPECIFIED SNOMED Code(s): 77126124 (4) Pancytopenia Current Visit: Yes Status: Acute Priority: High Code(s): D61.818 - OTHER PANCYTOPENIA SNOMED Code(s): 186745015 Plan: Pancytopenia: Presented for abnormal outpt lab work, low hgb. Patient reports has been having melena intermittently over the last couple weeks. Also reports hematemesis approximately 3 months ago. History of heavy alcohol use. No previous EGD/c olonoscopy -On admission hemoglobin was noted at 4.3, MCV 72.9, MCH 20.4. WBC 2.1, platelets 138,000. Differential showing mild decrease in neutrophils and lymphocytes, no other significant abnormalities. Iron saturation 3.2%. Ferritin 12.0. 4 units PRBCs given, with repeat hgb today 6.0. 2 additional units PRBCs ordered -Parenteral iron ordered -GI has been consulted and plan for endoscopic evaluation on Friday, 02/26 -Anemia r/t acute GI bleed. Mild leukopenia and thrombocytopenia, reactive to acute condition and known cirrhosis, as well as bone marrow suppression r/t to heavy alcohol use -Will obtain pancytopenia workup to r/o other etiologies -Vitamin B12 835. Immunoglobulins WNL. RF and VIVIAN negative. Remaining workup pending -S/p 6 units PRBCs since admit. Repeat hgb today 8.2 -Continue to monitor CBC. Please transfuse for hgb less than 7 Discussed results and POC with pt. Recommended clinic f/u in 4-6 weeks to reheck iron studies and additional IV iron as needed per workup. He declined, and states he would rather f/u with his PCP Abnormal CT, Abdominal lymphadenopathy: -CT abdomen pelvis with contrast revealed fat stranding changes in upper abdomen unclear etiology, multiple lymph nodes which are prominent and mildly enlarged in the mesentery with adjacent fat stranding measuring up to 9 mm. Mesenteric adenitis and sclerosing pancolitis. Retroperitoneal lymph nodes measure up to 13 mm. Nodularity to liver with splenomegaly. Cholelithiasis -Denies history of cancer -Reported mild lymphadenopathy on CT AP rather non-specific. Will obtain CT chest, if no significant findings, recommend repeat CT AP in 3-4 months to reevaluate -CT chest with contrast was negative for suspicious lesions/mass or abnormal lymphadenopathy. As stated above, recommend surveillance CT abdomen pelvis in 3 to 4 months. Discussed recommendations with pt, and states he will f/u with his PCP
--- NOTE | 2024-02-26 15:38 | P.PN ---
Subjective Progress Note Date: 02/26/24 Hospital Course: Patient is a pleasant 43-year-old male with a past medical history of heavy alcohol abuse drinking a reported half a gallon of vodka or more daily. He presented to the emergency department today as directed by his PCP for concerns of critically low hemoglobin of 4.4. Patient reports he went to his PCPs office yesterday secondary to reports of generalized weakness/fatigue, exertional dyspnea, lower extremity edema, and reports of bloody stools. Patient reports he has had progressively worsening swelling in his lower extremities over the p ast 6 months, noticed jaundice discoloration over the last 3 months, and reported bloody stools both black and tarry as well as bright red at times occurring approximately 1-2 episodes a week over the past 3 months. Patient reports all of the symptoms have progressively worsened and just ambulating short distances, he now needs to sit down and take a break. Patient reports heavy alcohol abuse for greater than 20 years and has not been to a doctor throughout that time until yesterday. Does report occasional marijuana use but denies nicotine use and denies any other drug use. Patient reports last alcoholic drink was 02/23/2024. Upon arrival to our facility, patient underwent evaluation in the emergency department. Vital signs upon arrival show blood pressure 111/54, heart rate 122, respiratory rate 18, temp 98.1 F, and SpO2 of 100% on room air. EKG was completed showing sinus tachycardia at 101 bpm with T wave inversion in lateral leads I, II, aVL and V4 through V6. Labs completed and reviewed. CBC showing pancytopenia with WBC count of 2.1, hemoglobin of 4.3, and platelet count of 138. Coagulation profile showing elevated PT of 14.1 and INR 1.4. BMP unremarkable. Blood glucose 104. Magnesium 1.9. Liver profile showing hyperbilirubinemia with total bili of 2.7 and AST of 74. Fecal occult was positive. Order placed for transfusion of 2 units PRBCs and patient admitted under our services with consultation to medical clinic manager. CT abdomen and pelvis with contrast was completed showing multiple lymph nodes which are prominent and mildly enlarged in the mesentery with adjacent fat stranding, retroperitoneal upper abdominal lymph nodes, mesenteric adenitis and sclerosing panniculitis with nodularity to the liver with splenomegaly consistent with cirrhosis and portal hypertension. CT chest with contrast was completed and reviewed showing small to tiny right greater than left pleural effusions with associated bibasilar compressive atelectasis negative for abnormal lymph nodes showing no greater than 1 cm hilar or mediastinal lymph nodes reported. Echocardiogram completed showing a preserved EF of 55 to 60% with mild to moderate mitral regurgitation. Physical exam: Patient seen and fully evaluated at bedside this morning. He was ambulating in room this morning and reports feeling well. He reports 1 episode of hematochezia yesterday evening stating bright red blood in stool and reports he has not had any further bowel movements since. He continues to deny having any pain, the swelling in his lower extremities has significantly improved. Vital signs reviewed and stable. General: Nontoxic, no distress and appears stated age. Derm: Skin warm and dry, Jaundiced Head: Atraumatic, normocephalic and symmetric. Eyes: EOMs intact, no lid lag, and scleral icteris Mouth: no lip lesions, mucus membranes moist Cardiovascular: regular rate and rhythm with normal S1S2, no murmur, positive posterior tibial pulses bilaterally, and cap refill < 2 seconds. Lungs: Respirations even, regular, and unlabored on room air. Lungs CTA bilaterally, no rhonchi, no rales, no wheezing, and no accessory muscle usage. Abdominal: soft, slight tenderness upon palpation right upper quadrant, no guarding, positive for hepatomegaly on physical exam Ext: ROM intact. No gross muscle atrophy, 1-2+ pitting bilateral lower extremity pedal edema, no contractures Neuro: Speech clear, face symmetrical and CN II-XII grossly intact with no noted focal neuro deficits Psych: Alert and oriented to person, place, time, and situation. Appropriate and pleasant affect. Assessment and Plan of Care: Acute blood loss anemia secondary to GI bleed with hemoglobin of 4.3 Liver cirrhosis Multiple prominent enlarged lymph nodes throughout abdomen -Gastroenterology following, discussed plan of care with [employer] CONSULTANT stating patient scheduled to undergo EGD and colonoscopy tomorrow. -CT abdomen and pelvis with contrast was completed showing multiple lymph nodes which are prominent and mildly enlarged in the mesentery with adjacent fat stranding, retroperitoneal upper abdominal lymph nodes, mesenteric adenitis and sclerosing panniculitis with nodularity to the liver with splenomegaly consistent with cirrhosis and portal hypertension. -Continue to monitor H&H every 6 hours and transfuse as needed for hemoglobin less than 7. Status posttransfusion of 6 units PRBCs hemoglobin 8.2. -Protonix 40 mg IVP twice daily. -Clear Liquid diet, NPO at midnight for scheduled EGD and colonoscopy tomorrow. -Order placed for Lasix 40 mg IVP to be administered between blood transfusions. -Continue SCDs for DVT prophylaxis. -Telemetry monitoring -Iron profile obtained on admission revealed iron of 14, TIBC of 437, iron percentage saturation of 3.20 and transferrin of 312.0. -Hematology/oncology consulted secondary to multiple prominently enlarged lymph nodes throughout the abdomen. Severe alcohol abuse, pending withdraw Liver Cirrhosis with portal vein hypertension, suspect alcoholic cirrhosis Pancytopenia, suspect secondary to daily alcohol abuse Hyperbilirubinemia with elevated liver enzymes, secondary to daily alcohol abuse Elevated INR -Continue monitoring of CIWA scores and patient to be medicated with Ativan 0.5 mg every 4 hours as needed for CIWA score of 4-5, Ativan 1 mg every 4 hours for CIWA score of 6-7, Ativan 2 mg every 3 hours CIWA score of 8-9, and Ativan 2 mg every 2 hours forr CIWA score of 10 or greater. -Continuous IV hydration. -Thiamine 100 mg daily, and Multivitamin daily, and Folate 1 mg daily -Seizure and fall precautions in place. -Continued close monitoring of electrolytes and replace as needed. -Telemetry monitoring. Data and imaging reviewed: Status posttransfusion of 6 units PRBCs hemoglobin 8.2. Labs completed and reviewed. CBC with continued pancytopenia with WBC count of 2.5, hemoglobin 8.2, platelet count of 141,000. Coagulation profile showing elevated PT of 14.5 and INR 1.4. BMP showing hyperchloremia with chloride of 108 otherwise normal findings. Total bili is 5.0. CT chest with contrast was completed and reviewed showing small to tiny right greater than left pleural effusions with associated bibasilar compressive atelectasis negative for abnormal lymph nodes showing no greater than 1 cm hilar or mediastinal lymph nodes reported. Echocardiogram completed showing a preserved EF of 55 to 60% with mild to moderate mitral regurgitation. Vital Signs reviewed. Blood pressure 126/74, heart rate 103, respiratory rate 18, temp 97.6 F, and SpO2 100% on room air. CODE STATUS: Full code DVT prophylaxis: SCDs Anticipated discharge date: Pending clinical course Anticipated discharge place: Home Patient was seen independently by Nurse Practitioner. This document was prepared using Dragon dictation software. Please allow for errors in [employer] while rare they do occur. . Benson Ty [employer] CONSULTANT rendered care for this patient independently, reviewed the findings and plan as documented in the note above. I did not physically speak with or examine the patient on this date. Objective - Vital Signs Vital signs: Vital Signs Temp 97.6 F 02/26/24 08:40 Pulse 103 H 02/26/24 08:40 Resp 18 02/26/24 08:40 BP 126/74 02/26/24 08:40 Pulse Ox 100 02/26/24 08:40 FiO2 Intake & Output 02/25/24 02/26/24 02/26/24 18:59 06:59 18:59 Intake Total 1200 Balance 1200 Weight 123.3 kg Intake: Oral 580 Blood Product 620 Rc As-1 Unit 310 [id number] Rc As-1 Unit 0 [id number] Rc As-1 Unit 310 [id number] Other: Voiding Method Toilet Toilet # Voids 12 2 # Bowel Movements 1 - Labs CBC & Chem 7: 02/26/24 11:11 02/26/24 07:01 Labs: Abnormal Lab Results - Last 24 Hours (Table) 02/24/24 02/24/24 02/25/24 Range/Units 13:41 14:05 07:52 WBC (3.8-10.6) k/uL RBC (4.30-5.90) m/uL Hgb (13.0-17.5) gm/dL Hct (39.0-53.0) % MCV (80.0-100.0) fL MCH (25.0-35.0) pg MCHC (31.0-37.0) g/dL RDW (11.5-15.5) % Plt Count (150-450) k/uL Neutrophils # (1.3-7.7) k/uL Lymphocytes # (1.0-4.8) k/uL PT (10.0-12.5) sec INR (<1.2) Chloride 111 H (98-107) mmol/L Carbon Dioxide 20 L (22-30) mmol/L BUN 7 L (9-20) mg/dL Creatinine 0.63 L (0.66-1.25) mg/dL Ferritin 12.0 L (22.0-322.0) ng/mL Total Bilirubin 4.7 H (0.2-1.3) mg/dL Total Protein 6.0 L (6.3-8.2) g/dL Albumin 3.4 L (3.5-5.0) g/dL Crossmatch See Detail 02/25/24 02/25/24 02/25/24 Range/Units 07:52 17:35 23:52 WBC 1.9 L 2.3 L 2.8 L (3.8-10.6) k/uL RBC 2.66 L 3.22 L 3.13 L (4.30-5.90) m/uL Hgb 6.0 L* 7.8 L D 7.3 L (13.0-17.5) gm/dL Hct 20.8 L 25.1 L 24.1 L (39.0-53.0) % MCV 78.4 L 78.0 L 77.1 L (80.0-100.0) fL MCH 22.4 L 24.2 L 23.3 L (25.0-35.0) pg MCHC 28.6 L 30.2 L (31.0-37.0) g/dL RDW 19.1 H 18.6 H 19.5 H (11.5-15.5) % Plt Count 129 L 128 L 131 L (150-450) k/uL Neutrophils # 1.1 L (1.3-7.7) k/uL Lymphocytes # 0.6 L (1.0-4.8) k/uL PT (10.0-12.5) sec INR (<1.2) Chloride (98-107) mmol/L Carbon Dioxide (22-30) mmol/L BUN (9-20) mg/dL Creatinine (0.66-1.25) mg/dL Ferritin (22.0-322.0) ng/mL Total Bilirubin (0.2-1.3) mg/dL Total Protein (6.3-8.2) g/dL Albumin (3.5-5.0) g/dL Crossmatch 02/26/24 02/26/24 02/26/24 Range/Units 07:01 07:01 07:01 WBC 2.5 L (3.8-10.6) k/uL RBC 3.45 L (4.30-5.90) m/uL Hgb 8.2 L (13.0-17.5) gm/dL Hct 26.8 L (39.0-53.0) % MCV 77.7 L (80.0-100.0) fL MCH 23.6 L (25.0-35.0) pg MCHC 30.4 L (31.0-37.0) g/dL RDW 19.1 H (11.5-15.5) % Plt Count 141 L (150-450) k/uL Neutrophils # (1.3-7.7) k/uL Lymphocytes # 0.9 L (1.0-4.8) k/uL PT 14.5 H (10.0-12.5) sec INR 1.4 H (<1.2) Chloride 108 H (98-107) mmol/L Carbon Dioxide (22-30) mmol/L BUN 4 L (9-20) mg/dL Creatinine (0.66-1.25) mg/dL Ferritin (22.0-322.0) ng/mL Total Bilirubin 5.0 H (0.2-1.3) mg/dL Total Protein (6.3-8.2) g/dL Albumin (3.5-5.0) g/dL Crossmatch
[2024-02-26 17:31] LABS: Anisocytosis Moderate; HCT 26.8 % (39.0-53.0); HGB 8.2 gm/dL (13.0-17.5); Hypochromasia Marked; MCH 23.6 pg (25.0-35.0); MCHC 30.4 g/dL (31.0-37.0); MCV 77.6 fL (80.0-100.0); Mean Platelet Volume 8.1; Microcytosis Moderate; Platelet Count 155 k/uL (150-450); Poikilocytosis Marked; RBC 3.45 m/uL (4.30-5.90); RDW 20.1 % (11.5-15.5); WBC 2.3 k/uL (3.8-10.6)
[2024-02-26 18:25] LABS: Albumin 3.86 g/dL (3.80-4.90); Free Kappa Lt Chain Qnt, Serum 2.83 mg/dL (0.33-1.94); Free Lambda Lt Chain Qnt, Seru 2.74 mg/dL (0.57-2.63); Gamma Globulin 1.17 g/dL (0.70-1.50)
[2024-02-26] MEDS: PEG 3350 (236 GM/BTL) + LYTES 4,000 ML BOTTLE PO ONE (20:25)
[2024-02-27 01:16] LABS: Anisocytosis Moderate; HCT 26.2 % (39.0-53.0); HGB 7.9 gm/dL (13.0-17.5); Hypochromasia Marked; MCH 23.4 pg (25.0-35.0); MCHC 30.3 g/dL (31.0-37.0); MCV 77.3 fL (80.0-100.0); Mean Platelet Volume 7.7; Microcytosis Moderate; Platelet Count 166 k/uL (150-450); Poikilocytosis Marked; RBC 3.39 m/uL (4.30-5.90); RDW 20.5 % (11.5-15.5); WBC 3.1 k/uL (3.8-10.6)
[2024-02-27] MEDS ORDERED: LIDOCAINE 1% (10MG/ML) FOR IV START INTRADERMA PRN (07:52)
[2024-02-27 08:35] LABS: Anisocytosis Moderate; HCT 30.7 % (39.0-53.0); HGB 8.9 gm/dL (13.0-17.5); Hypochromasia Marked; MCH 23.2 pg (25.0-35.0); MCHC 29.2 g/dL (31.0-37.0); MCV 79.6 fL (80.0-100.0); Mean Platelet Volume 7.4; Microcytosis Slight; Platelet Count 188 k/uL (150-450); Poikilocytosis Marked; RBC 3.85 m/uL (4.30-5.90); RDW 20.8 % (11.5-15.5)
[2024-02-27 08:48] LABS: INR 1.4 (<1.2); Prothrombin Time 14.7 sec (10.0-12.5)
[2024-02-27 08:52] LABS: AST 65 U/L (17-59); African American GFR (CKD) >90 (>60 ml/min/1.73 sqM); Albumin 4.1 g/dL (3.5-5.0); Alkaline Phosphatase 123 U/L (38-126); Anion Gap 10 mmol/L; Blood Urea Nitrogen 5 mg/dL (9-20); Calcium 9.3 mg/dL (8.4-10.2); Carbon Dioxide 22 mmol/L (22-30); Chloride 107 mmol/L (98-107); Glucose 95 mg/dL (74-99); Non-African American GFR(CKD) >90 (>60 ml/min/1.73 sqM); Potassium 3.6 mmol/L (3.5-5.1); Sodium 139 mmol/L (137-145); Total Protein 6.9 g/dL (6.3-8.2)
[2024-02-27 08:53] LABS: ALT 27 U/L (4-49)
[2024-02-27] MEDS: LACTATED RINGERS 1,000 ML IV ONE ×3 (09:32→09:57)
[2024-02-27] MEDS ORDERED: PROPOFOL 10 MG/ML 20 ML VIAL IV ONE (09:36)
[2024-02-27] MEDS: LACTATED RINGERS 1,000 ML IV SCH (09:36)
--- NOTE | 2024-02-27 09:57 | P.PCN ---
Date of Procedure: 02/27/24 Procedure(s) Performed: Brief history: Patient is a pleasant 43-year-old white male admitted hospital with severe symptomatic anemia and hemoglobin of 4.4 g/dL requiring total of 6 units of Is a transition. Iron indices were consistent with iron deficiency anemia. Has been coming of intermittent rectal bleeding. He is scheduled for an upper endoscopy as well as colonoscopy today. Procedure performed: Esophagogastroduodenoscopy with biopsy Colonoscopy Preoperative diagnosis: Severe symptomatic iron deficiency anemia Intermittent rectal bleeding Anesthesia: MAC Procedure: After informed consent was obtained from the patient was brought into the endoscopy unit and IV sedation was administered by anesthesia under continuous monitoring. Initially upper endoscopy was done. The Olympus GF 160 video endoscope was inserted inserted into the mouth and esophagus intubated without any difficulty and was gradually advanced into the stomach and duodenum and carefully examined. The bulb and second part of the duodenum appeared normal. biopsy were done from the duodenum to evaluate for celiac disease. The scope was then withdrawn into the stomach adequately insufflated with air and upon careful examination the antrum and bodyhad mild gastritis with scattered erosions and biopsies were done from this area. The cardia of the stomach there was a 5 mm gastric polyp that was biopsied. Rest of the, cardia and fundus appeared normal. The scope was then withdrawn into the esophagus. The GE junction was located at 40 cm to the incisors. It appeared regular with no erythema erosions or ulcerations. Rest of the esophagus appeared normal. Patient tolerated the procedure well. At this time the patient continued to remain sedation. Initial digital rectal examination was normal. Olympus CF 160 video colonoscope was then inserted into the rectum and gradually advanced to the cecum without any difficulty. Careful examination was performed as the scope was gradually being withdrawn. The prep was excellent. The cecum, ascending colon, transverse colon, descending colon, sigmoid colon and rectum appeared normal. Retroflexion was performed in the rectum and grade 2 internal hemorrhoids were noted. Patient tolerated the procedure well. Impression: 1. Upper endoscopy revealed mild antral gastritis, small gastric polyp and hiatal hernia 2. Colonoscopy revealed grade 2 internal hemorrhoids but no evidence of colitis or colorectal neoplasia Recommendations: Findings of this examination were discussed with the patient .He was advised to follow with the biopsy results. Start iron supplements daily. Monitor CBC periodically.best a regular diet. Follow up in office in 2-3 weeks from discharge from the hospital.
[2024-02-27 10:27] VITALS: RESP 16
[2024-02-27 10:55] VITALS: BP 131/68; PULSE 88; TEMP 98.4
--- NOTE | 2024-02-27 11:15 | P.DS ---
Providers Date of admission: 02/24/24 14:26 Expected date of discharge: 02/27/24 Attending physician: Elie Washington MD Consults: 02/24/24 14:26 Consult Physician Urgent Consulting Provider: Clare Curry Consult Reason/Comments: gi hemorrhage Do you want consulting provider notified?: Yes 02/25/24 08:14 Consult Physician Routine Consulting Provider: Raghu Villalta Consult Reason/Comments: multiple enlargedlymph nodes, abnormal CT Do you want consulting provider notified?: Yes Primary care physician: [facility] Course: Discharge Diagnosis: Acute blood loss anemia secondary to Severe iron deficiency anemia and GI bleed with initial hemoglobin of 4.3. Patient underwent EGD and colonoscopy. EGD showing mild antral gastritis with small gastric polyps and hiatal hernia. Colonoscopy revealing a grade 2 internal hemorrhoids with no evidence of colitis or colorectal neoplasia. Biopsies were obtained and patient to follow-up outpatient with cooking instructor recommending daily iron supplements. Patient received a total of 6 units PRBCs throughout hospitalization. Hemoglobin on day of discharge stable at 8.9. Patient is medically stable at this timeAnd is being discharged home on Protonix 40 mg daily along with daily iron supplements with ferrous sulfate 325 mg daily. Alcoholic Liver cirrhosis with portal vein hypertension Multiple prominent enlarged lymph nodes throughout abdomen. Patient was evaluated by cooking instructor and textile supervisor/oncologist. Patient will need repeat CT abdomen and pelvis in 3-4 months to reevaluate. Severe alcohol abuse. Pancytopenia, secondary to daily alcohol abuse and liver cirrhosis Hyperbilirubinemia with elevated liver enzymes, secondary to daily alcohol abuse and liver cirrhosis Elevated INR, secondary to daily alcohol abuse and liver cirrhosis Hospital Course: Patient is a pleasant 43-year-old male with a past medical history of heavy alcohol abuse drinking a reported half a gallon of vodka or more daily. He presented to the emergency department on 02/24/24 as directed by his PCP for concerns of critically low hemoglobin of 4.4. Patient reported he went to his PCPs office secondary to reports of generalized weakness/fatigue, exertional dyspnea, lower extremity edema, yellow discoloration of skin and eyes and reports of bloody stools. Upon arrival to our facility, patient underwent evaluation in the emergency department. Vital signs upon arrival show blood pressure 111/54, heart rate 122, respiratory rate 18, temp 98.1 F, and SpO2 of 100% on room air. EKG was completed showing sinus tachycardia at 101 bpm with T wave inversion in lateral leads I, II, aVL and V4 through V6. Labs completed and reviewed. CBC showing pancytopenia with WBC count of 2.1, hemoglobin of 4.3, and platelet count of 138. Coagulation profile showing elevated PT of 14.1 and INR 1.4. BMP unremarkable. Blood glucose 104. Magnesium 1.9. Liver profile showing hyperbilirubinemia with total bili of 2.7 and AST of 74. Fecal occult was positive. Order placed for transfusion of PRBCs and patient admitted under our services with consultation to cooking instructor. CT abdomen and pelvis with contrast was completed showing multiple lymph nodes which are prominent and mildly enlarged in the mesentery with adjacent fat stranding, retroperitoneal upper abdominal lymph nodes, mesenteric adenitis and sclerosing panniculitis with nodularity to the liver with splenomegaly consistent with cirrhosis and portal hypertension. CT chest with contrast was completed and reviewed showing small to tiny right greater than left pleural effusions with associated bibasilar compressive atelectasis negative for abnormal lymph nodes showing no greater than 1 cm hilar or mediastinal lymph nodes reported. Echocardiogram completed showing a preserved EF of 55 to 60% with mild to moderate mitral regurgitation. Patient underwent EGD and colonoscopy. EGD showing mild antral gastritis with small gastric polyps and hiatal hernia. Colonoscopy revealing a grade 2 internal hemorrhoids with no evidence of colitis or colorectal neoplasia. Biopsies were obtained and patient to follow-up outpatient with cooking instructor recommending daily iron supplements. Patient received a total of 6 units PRBCs throughout hospitalization. Hemoglobin on day of discharge stable at 8.9. Patient is medically stable at this timeAnd is being discharged home on Protonix 40 mg daily along with daily iron supplements with ferrous sulfate 325 mg daily. Patient was strongly advised to avoid any and all alcohol use and to follow up outpatient with PCP in 1-2 days and with cooking instructor in 1 week. Patient have repeat CBC and CMP completed 3 days post discharge. Results to be sent to PCP and cooking instructor for follow-up and management. Physical exam: Vital signs reviewed and stable. General: Nontoxic, no distress and appears stated age. Derm: Skin warm and dry, Jaundiced Head: Atraumatic, normocephalic and symmetric. Eyes: EOMs intact, no lid lag, and scleral icteris Mouth: no lip lesions, mucus membranes moist Cardiovascular: regular rate and rhythm with normal S1S2, no murmur, positive posterior tibial pulses bilaterally, and cap refill < 2 seconds. Lungs: Respirations even, regular, and unlabored on room air. Lungs CTA bilaterally, no rhonchi, no rales, no wheezing, and no accessory muscle usage. Abdominal: soft, slight tenderness upon palpation right upper quadrant, no guarding, positive for hepatomegaly on physical exam Ext: ROM intact. No gross muscle atrophy, 1-2+ pitting bilateral lower extremity pedal edema, no contractures Neuro: Speech clear, face symmetrical and CN II-XII grossly intact with no noted focal neuro deficits Psych: Alert and oriented to person, place, time, and situation. Appropriate and pleasant affect. A total of 37 minutes of time were spent preparing this complex discharge summary. Pt was discharged on 02/27/24 at 11:14 AM. Patient was seen independently by Nurse Practitioner. This document was prepared using [employer] dictation software. Please allow for errors in residential roofer while rare they do occur. Benson Ty NP rendered care for this patient independently, reviewed the findings and plan as documented in the note above. I did not physically speak with or examine the patient on this date. Patient Condition at Discharge: Stable Plan - Discharge Summary Discharge Rx Participant: No New Discharge Prescriptions: New Multivitamins, Thera [Multivitamin (formulary)] 1 each PO DAILY 30 Days #30 tab Pantoprazole [Protonix] 40 mg PO DAILY 30 Days #30 tab Thiamine [Vitamin B-1] 100 mg PO DAILY 30 Days #30 tab Folic Acid 1 mg PO DAILY 30 Days #30 tab Ferrous Sulfate [Iron (65 MG Elemental)] 325 mg PO DAILY 30 Days #30 tab Continue Furosemide [Lasix] 40 mg PO DAILY Discharge Medication List Furosemide [Lasix] 40 mg PO DAILY 02/24/24 [History] Ferrous Sulfate [Iron (65 MG Elemental)] 325 mg PO DAILY 30 Days #30 tab 02/27/24 [Rx] Folic Acid 1 mg PO DAILY 30 Days #30 tab 02/27/24 [Rx] Multivitamins, Thera [Multivitamin (formulary)] 1 each PO DAILY 30 Days #30 tab 02/27/24 [Rx] Pantoprazole [Protonix] 40 mg PO DAILY 30 Days #30 tab 02/27/24 [Rx] Thiamine [Vitamin B-1] 100 mg PO DAILY 30 Days #30 tab 02/27/24 [Rx] Follow up Appointment(s)/Referral(s): Clare Curry MD [STAFF PHYSICIAN] - 1 Week Shilpa Morrison MD [Primary Care Provider] - 1-2 days Ambulatory/Diagnostic Orders: Complete Blood Count w/diff [LAB.AMB] Time Frame: 3 Days, Location: None Selected Comprehensive Metabolic Panel [LAB.AMB] Time Frame: 3 Days, Location: None Selected Patient Instructions/Handouts: Gastrointestinal Bleeding (DC), Cirrhosis (DC) Activity/Diet/Wound Care/Special Instructions: . Activity: As tolerated. Take breaks as needed. Diet: Heart healthy and carb consistent diet. Avoid salts, or foods with hidden salts such as canned or boxed foods and frozen dinners. Extra salt makes your heart work harder and traps the fluid in your body for longer. Special Instructions: Take all of your medications as directed and remember to keep all of your doctor's appointments and follow-up as needed. Thank you for allowing us to participate in your care, it was truly a pleasure having you for our patient!!! . Discharge/Stand Alone Forms: AA Meetings [place], Outpatient Counseling, Inp Substance Abuse Facilities Discharge Disposition: HOME SELF-CARE
[2024-02-27 12:59] VITALS: BMI 28.6
--- NOTE | 2024-02-27 14:23 | P.PN ---
Subjective Progress Note Date: 02/27/24 This is a 43-year-old male seen in the emergency department, room 19. The patient has a history of heavy alcohol abuse. The patient states that he drinks at least a half a gallon of vodka every day. He presented to the emergency department with weakness, and was found to have a hemoglobin of 4.3. His stools have had bright red blood, as well as dark tarry stools, over the course of many weeks. The patient feels fatigued and tired. In addition, he complains of lower extremity edema. The patient recently started seeing a family doctor in [place]. The patient has not been to the doctor in many years. The patient states that he does not smoke. He has no past medical history, takes no me dications at home. He is on room air, and is getting saline at 125 cc an hour. Packed red blood cells have been ordered. He apparently saw the nurse practitioner in his new doctor's office, who directed him to the ER, when the blood work showed a very low hemoglobin. Current labs include a white count of 2.1, hemoglobin 4.3, hematocrit 15.2, and a platelet count of 138,000. 137, potassium 4.3, chlorides 107, CO2 23, anion gap 7, and creatinine 0.67. Glucose 104. Bilirubin 2.7. AST 74. ALT 26. Stools were positive for occult blood. Progress note dated February 25, 2024. 43-year-old male seen in the emergency room in consultation yesterday. We were asked to see him for a number of reasons including possible alcohol withdrawal syndrome, as well as severe anemia. His hemoglobin on admission was 4.3. The patient drinks 1/2 gallon of vodka every day. The patient has been seen by pa stroenterology, and is apparently going to have a scope. Currently, the patient is on room air. He is not receiving any IV fluids. Since he has been here, he has received a total of 5 units of PRBCs. Most recent labs include a white count 1.9, hemoglobin 6, hematocrit 20.8, platelet count 129,000. Sodium 138, potassium 3.9, chlorides 111, CO2 20, BUN 7, creatinine 0.63. Bilirubin is 4.[address] scan of the abdomen and pelvis reveals nodularity of the liver, with splenomegaly, consistent with cirrhosis with portal hypertension. There is cholelithiasis, and fat stranding in the upper abdomen with mildly enlarged lymph nodes, potentially consistent with lymphoma. Progress note dated February 26, 2024. 43-year-old male seen in the emergency department 2 days ago. He was admitted with a GI bleed. The patient is a heavy drinker, drinking 1/2 gallon of vodka every day at least. The patient's initial hemoglobin was 4.3. Since he has been here, he has received a total of 6 units of blood. Currently he is in his room, on the bed. He is on room air. No fluids. Apparently no scope today. It may occur tomorrow. His lower extremity edema, is much improved. Current labs are good white count 2.9, hemoglobin 8.6, hematocrit 28.4, and a platelet count of 167,000. PT 14.5, INR 1.4. Sodium 140, potassium 3.5, chlorides 108, CO2 24, BUN 4, creatinine 0.69. Total bilirubin is up to 5. Chest CT shows tiny bilateral effusions. The patient is seen today 02/27/2024 in follow-up on the selective care unit. He is awake and alert in no acute distress. Up ambulating in his room. Maintaining good O2 saturations in the 90s on room air. EGD today revealed mild antral gastritis, small gastric polyp and hiatal hernia. Colonoscopy revealed grade 2 internal hemorrhoids but no evidence of colitis or colorectal neoplasm. White count 3.0. Hemoglobin 8.9. Platelets 188. INR 1.4. Sodium 139. Potassium 3.6. Bicarb 22. BUN 5. Creatinine 0.69. He is continued on Prot james. Objective - Vital Signs Vital signs: Vital Signs Temp 98.4 F 02/27/24 10:54 Pulse 88 02/27/24 10:54 Resp 16 02/27/24 10:54 BP 131/68 02/27/24 10:54 Pulse Ox 100 02/27/24 10:54 FiO2 Intake & Output 02/26/24 02/27/24 02/27/24 18:59 06:59 18:59 Intake Total 300 Balance 300 Weight 118.4 kg 118.4 kg Intake: IV 300 Other: Voiding Method Toilet Toilet Toilet # Voids 2 1 - Exam GENERAL EXAM: Alert, pleasant 43-year-old male, on room air, comfortable in no apparent distress. HEAD: Normocephalic. EYES: Normal reaction of pupils, equal size. NOSE: Clear with pink turbinates. THROAT: No erythema or exudates. NECK: No masses, no JVD. CHEST: No chest wall deformity. LUNGS: Equal air entry with no crackles, wheeze, rhonchi or dullness. CVS: S1 and S2 normal with no audible murmur, regular rhythm. ABDOMEN: No hepatosplenomegaly, normal bowel sounds, no guarding or rigidity. SPINE: No scoliosis or deformity SKIN: No rashes. evidence of varicose veins. CENTRAL NERVOUS SYSTEM: No focal deficits, tone is normal in all 4 extremities. EXTREMITIES: There is 1-2+ peripheral edema. No clubbing, no cyanosis. Peripheral pulses are intact. - Labs CBC & Chem 7: 02/27/24 07:50 02/27/24 07:50 Labs: Abnormal Lab Results - Last 24 Hours (Table) 02/25/24 02/25/24 02/26/24 Range/Units 00:00 17:35 17:08 WBC 2.3 L (3.8-10.6) k/uL RBC 3.45 L (4.30-5.90) m/uL Hgb 8.2 L (13.0-17.5) gm/dL Hct 26.8 L (39.0-53.0) % MCV 77.6 L (80.0-100.0) fL MCH 23.6 L (25.0-35.0) pg MCHC 30.4 L (31.0-37.0) g/dL RDW 20.1 H (11.5-15.5) % PT (10.0-12.5) sec INR (<1.2) BUN (9-20) mg/dL Total Bilirubin (0.2-1.3) mg/dL AST (17-59) U/L [id number]-[id number]-Joagzuugk 0.46 L (0.60-1.00) g/dL RBC Folate 1,260 H (280 - 791) ng/mL Free Mila Doce LC, Quant 2.83 H (0.33-1.94) mg/dL Free Lambda LC, Quant 2.74 H (0.57-2.63) mg/dL 02/27/24 02/27/24 02/27/24 Range/Units 00:28 07:50 07:50 WBC 3.1 L 3.0 L (3.8-10.6) k/uL RBC 3.39 L 3.85 L (4.30-5.90) m/uL Hgb 7.9 L 8.9 L (13.0-17.5) gm/dL Hct 26.2 L 30.7 L (39.0-53.0) % MCV 77.3 L 79.6 L (80.0-100.0) fL MCH 23.4 L 23.2 L (25.0-35.0) pg MCHC 30.3 L 29.2 L (31.0-37.0) g/dL RDW 20.5 H 20.8 H (11.5-15.5) % PT (10.0-12.5) sec INR (<1.2) BUN 5 L (9-20) mg/dL Total Bilirubin 5.0 H (0.2-1.3) mg/dL AST 65 H (17-59) U/L Qyyrr-3-Jcmukeptg (0.60-1.00) g/dL RBC Folate (280 - 791) ng/mL Free Mila Doce LC, Quant (0.33-1.94) mg/dL Free Lambda LC, Quant (0.57-2.63) mg/dL 02/27/24 Range/Units 07:50 WBC (3.8-10.6) k/uL RBC (4.30-5.90) m/uL Hgb (13.0-17.5) gm/dL Hct (39.0-53.0) % MCV (80.0-100.0) fL MCH (25.0-35.0) pg MCHC (31.0-37.0) g/dL RDW (11.5-15.5) % PT 14.7 H (10.0-12.5) sec INR 1.4 H (<1.2) BUN (9-20) mg/dL Total Bilirubin (0.2-1.3) mg/dL AST (17-59) U/L Meykz-8-Qlcotebik (0.60-1.00) g/dL RBC Folate (280 - 791) ng/mL Free Mila Doce LC, Quant (0.33-1.94) mg/dL Free Lambda LC, Quant (0.57-2.63) mg/dL Assessment and Plan Assessment: Chronic gastrointestinal bleeding, with a hemoglobin of 4.3. Status post 6 units of packed red blood cells this admission. Current hemoglobin 8.9. EGD/colonoscopy today 02/27/2024 revealed mild antral gastritis, small gastric polyp and hiatal hernia. Grade 2 internal hemorrhoids but no evidence of colitis or colorectal neoplasia. Suspect chronic liver disease from alcohol abuse. CT scan evidence liver cirrhosis, splenomegaly, and portal hypertension. Rule out alcohol withdrawal syndrome. Chronic lower extremity edema, possibly related to chronic liver disease, and/or chronic venous incompetence. Hyperbilirubinemia. 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 Plan: The patient was seen and evaluated Currently stable and on room air Hemoglobin stable EGD/colonoscopy results reviewed Plan is for home later today I have personally seen and examined the patient, performed the documentation and the assessment and plan as written. Number of minutes spent on the visit: 10.
--- NOTE | 2024-03-02 14:50 | CDI ---
Documentation Clarification Form Date: 03/02/2024 02:29:27 PM From: Donna Quinn Phone: Admit Date: 02/24/2024 02:26:00 PM Patient Name: Tobias Nguyễn Visit Number: [id number] Discharge Date: 02/27/2024 12:56:00 PM ATTENTION: The Clinical Documentation Specialists (CDI) and [facility] Coding Staff appreciate your assistance in clarifying documentation. Please respond to the clarification below the line at the bottom and electronically sign. The CDI & [facility] Coding staff will review the response and follow-up if needed. Please note: Queries are made part of the Legal Health Record. If you have any questions, please contact the author of this message via ITS. Doctor/Provider: Clare Curry The final diagnosis of the pathology report states Gastritisand smallgastric polyp with reactivegastropathywithcongestion. Coding guidelines do not allow coding professionals to code based on pathology results; therefore, clarification is requested. History/risk factors: 43yo M, ChronicGIB, pancytopenia, cirrhosis of the liverwithportal HTN d/theavy alcohol abuse (1/2gal of vodka or more daily), smallhiatal hernia, antralgastritis, a smallgastric polyp, andhemorrhoids, severe MAURICE, multi enlarged lymph nodesthroughout abdomen. Clinical Indicators: DUODENUM, BIOPSY: Small bowel mucosawith nosignificant histologicabnormality. STOMACH, ANTRUM, BIOPSY: Reactivegastropathywithcongestion. Helicobacter pyloriorganisms arenot identifiedon routine H+E sections. STOMACH POLYP, GASTRIC CARDIA, BIOPSY: Fundic glandpolyp. Treatment: Duodenum, Stomach Antrum and Cardia of stomach Bx. The patient is counseled about 8 points of alcohol cessation. 6u PRBC. Patient is medically stable at this time and is being DC home on Protonix 40 mg daily along with daily iron supplements with ferrous sulfate 325 mg daily. Is there an additional diagnosis that is clinically appropriate for this patient? Please select any/all that apply [ ] Alcoholic gastritis with bleeding [ ] Chronic or unspecified gastric ulcer with hemorrhage [ ] Acute on Chronic Alcoholic gastritis with bleeding [ ] Acute on Chronic gastritis with bleeding [ ] Reactivegastropathy [ ] Unable to determine [ ] Other, please specify (Template Last Revised: October 2020) Additional diagnosis: Reactive gastropathy Clare BAUGH
== END 2024-02-27 12:56 | disposition home or self-care (01) | DRG 392 ==
LOC: EC 11:55 → 3SCARD 14:26
PROVIDERS: ADMIT Student in an Organized Health Care Education/Training Program; ATTEND Student in an Organized Health Care Education/Training Program
PROC: 30233N1 Transfusion of Nonautologous Red Blood Cells into Peripheral Vein, Percutaneous Approach (ICD-10-PCS; principal; 2024-02-24)
PROC: 0DJD8ZZ Inspection of Lower Intestinal Tract, Via Natural or Artificial Opening Endoscopic (ICD-10-PCS; 2024-02-27)
PROC: 0DB78ZX Excision of Stomach, Pylorus, Via Natural or Artificial Opening Endoscopic, Diagnostic (ICD-10-PCS; 2024-02-27 09:05)
DX: K31.89 Other diseases of stomach and duodenum (principal); D61.818 Other pancytopenia; C85.93 Non-Hodgkin lymphoma, unspecified, intra-abdominal lymph nodes; K76.6 Portal hypertension; D62 Acute posthemorrhagic anemia; K92.1 Melena; F10.239 Alcohol dependence with withdrawal, unspecified; K70.30 Alcoholic cirrhosis of liver without ascites; I34.0 Nonrheumatic mitral (valve) insufficiency; D50.9 Iron deficiency anemia, unspecified; K31.7 Polyp of stomach and duodenum; K44.9 Diaphragmatic hernia without obstruction or gangrene; K64.1 Second degree hemorrhoids; R16.1 Splenomegaly, not elsewhere classified; I88.0 Nonspecific mesenteric lymphadenitis; R79.1 Abnormal coagulation profile; K80.20 Calculus of gallbladder without cholecystitis without obstruction; I83.899 Varicose veins of unspecified lower extremity with other complications; Z79.899 Other long term (current) drug therapy
CPT/HCPCS: 36410; 36415; 36430; 43239; 45378; 71260; 74177; 76937; 80053; 82272; 82607; 82728; 82747; 82784; 83540; 83550; 83615; 83735; 83883; 83921; 84165; 85025; 85027; 85610; 85652; 86038; 86334; 86431; 86850; 86900; 86901; 86920; 88305; 93005; 93306; 96361; 96374; 96376; 99213; 99291

== ENCOUNTER → 2024-03-08 | Outpatient (CLI) | payer BC ==
[2024-03-08 19:54] LABS: HCT 30.3 % (39.6-50.0); HGB 8.8 g/dL (13.0-17.0); MCH 24.4 pg (27.0-32.0); MCV 84.2 FL (80.0-97.0); Mean Platelet Volume 9.7 FL (9.5-12.2); NRBC Per 100 WBC 0 X 10*3/uL (0.00-0.01); Platelet Count 185 X 10*3/uL (140-440); RDW 27.9 % (11.5-14.5); WBC 3.86 X 10*3/uL (4.50-10.00)
[2024-03-08 21:18] LABS: Anisocytosis (M) 2+; Basophils # (A) 0.05 X 10*3/uL (0.00-0.10); Basophils % (A) 1.3 %; Eosinophils # (A) 0.05 X 10*3/uL (0.04-0.35); Eosinophils % (A) 1.3 %; Hypochromasia (M) 2+; Immature Grans, Automated 0 %; Lymphocytes # (A) 1.03 X 10*3/uL (0.90-5.00); Lymphocytes % (A) 26.7 %; Microcytosis (M) 2+; Monocytes # (A) 0.54 X 10*3/uL (0.20-1.00); Neutrophils # (A) 2.19 X 10*3/uL (1.80-7.70); Neutrophils % (A) 56.7 %
== END | disposition home or self-care (01) ==
LOC: LABWHC1 12:38
PROVIDERS: ATTEND Family Medicine
DX: D64.9 Anemia, unspecified (principal); K74.60 Unspecified cirrhosis of liver
CPT/HCPCS: 36415; 85025

== ENCOUNTER → 2024-06-10 | Outpatient (CLI) | payer BC ==
[2024-06-10 19:51] LABS: HCT 32.6 % (39.6-50.0); HGB 10.9 g/dL (13.0-17.0); MCH 33.1 pg (27.0-32.0); MCHC 33.4 g/dL (32.0-37.0); MCV 99.1 FL (80.0-97.0); Mean Platelet Volume 9.9 FL (9.5-12.2); NRBC Per 100 WBC 0 X 10*3/uL (0.00-0.01); Platelet Count 94 X 10*3/uL (140-440); RBC 3.29 X 10*6/uL (4.40-5.60); RDW 15.3 % (11.5-14.5)
[2024-06-10 20:03] LABS: ALT 37 U/L (10-49); AST 69 U/L (14-35); Albumin 4.6 g/dL (3.8-4.9); Alkaline Phosphatase 153 U/L (41-126); Blood Urea Nitrogen 11.2 mg/dL (9.0-27.0); Carbon Dioxide 26.6 mmol/L (21.6-31.8); Chloride 104 mmol/L (96-109); Globulin 2.7 g/dL (1.6-3.3); Glucose 99 mg/dL (70-110); Potassium 3.9 mmol/L (3.5-5.5); Sodium 142 mmol/L (135-145); Total Bilirubin 2.2 mg/dL (0.3-1.2); Total Protein 7.3 g/dL (6.2-8.2)
== END | disposition home or self-care (01) ==
LOC: LABWHC1 13:38
PROVIDERS: ATTEND Internal Medicine Gastroenterology
DX: K70.30 Alcoholic cirrhosis of liver without ascites (principal)
CPT/HCPCS: 36415; 80053; 82105; 85027

== ENCOUNTER → 2024-08-20 | Outpatient (CLI) | payer BC ==
[2024-08-20 15:07] LABS: Basophils # (A) 0.05 X 10*3/uL (0.00-0.10); Basophils % (A) 1.8 %; Eosinophils # (A) 0.03 X 10*3/uL (0.04-0.35); Eosinophils % (A) 1.1 %; HCT 32.2 % (39.6-50.0); HGB 10.7 g/dL (13.0-17.0); Immature Grans, Automated 0 %; Lymphocytes # (A) 0.87 X 10*3/uL (0.90-5.00); Lymphocytes % (A) 31.2 %; MCH 32.8 pg (27.0-32.0); MCHC 33.2 g/dL (32.0-37.0); MCV 98.8 FL (80.0-97.0); Mean Platelet Volume 10.2 FL (9.5-12.2); Monocytes # (A) 0.37 X 10*3/uL (0.20-1.00); Monocytes % (A) 13.3 %; NRBC Per 100 WBC 0 X 10*3/uL (0.00-0.01); Neutrophils # (A) 1.47 X 10*3/uL (1.80-7.70); Neutrophils % (A) 52.6 %; Platelet Count 89 X 10*3/uL (140-440); RBC 3.26 X 10*6/uL (4.40-5.60); RDW 14.6 % (11.5-14.5); WBC 2.79 X 10*3/uL (4.50-10.00)
[2024-08-20 15:27] LABS: % Iron Saturation 26.03 (15.00-50.00); Iron 95 UG/DL (65-175); Total Iron Binding Capacity 365 UG/DL (228-460)
[2024-08-20 15:32] LABS: ALT 34 U/L (10-49); AST 61 U/L (14-35); Albumin 4.4 g/dL (3.8-4.9); Albumin/Globulin Ratio 1.42 Ratio (1.60-3.17); Alkaline Phosphatase 140 U/L (41-126); BUN/Creat Ratio 12.11 Ratio (12.00-20.00); Blood Urea Nitrogen 10.9 mg/dL (9.0-27.0); Carbon Dioxide 25.9 mmol/L (21.6-31.8); Chloride 104 mmol/L (96-109); Globulin 3.1 g/dL (1.6-3.3); Glucose 97 mg/dL (70-110); Potassium 4.4 mmol/L (3.5-5.5); Sodium 141 mmol/L (135-145); Total Protein 7.5 g/dL (6.2-8.2)
== END | disposition home or self-care (01) ==
LOC: LABWHC1 08:48
PROVIDERS: ATTEND Family Medicine
DX: Z00.00 Encounter for general adult medical examination without abnormal findings (principal); N18.9 Chronic kidney disease, unspecified
CPT/HCPCS: 36415; 80053; 80061; 83540; 83550; 85025